=== PATIENT | female | born 1990 | race Caucasian/White ===

== ENCOUNTER 2020-12-30 12:43 | Emergency (ER) | payer OTHER, SELFPAY ==
[2020-12-30 12:51] VITALS: BP 113/60; PULSE 83; RESP 18; TEMP 36.4; O2SAT 96; BMI 55.7
--- NOTE | 2020-12-30 13:22 | ED_ITS ---
HPI - Fall General Chief Complaint: Fall Stated Complaint: FALL Time Seen by Provider: 12/30/20 13:12 History of Present Illness HPI Narrative: Patient complains of continued pain in the left lower leg sales area after a fall 2 weeks ago and is concerned about a small spot on her sales area that is tender to the touch and mildly swollen Related Data Home Medications Medication Instructions Recorded Confirmed docusate sodium 100 mg capsule 100 mg PO BID 08/01/20 08/01/20 ferrous sulfate 325 mg (65 mg 325 mg PO BID 08/01/20 08/01/20 iron) tablet levonorgestrel 20 mcg/24 hours (6 INTRAUTERINE 08/01/20 08/01/20 yrs) 52 mg intrauterine device loratadine 10 mg capsule 10 mg PO DAILY 08/01/20 08/01/20 Allergies Allergy/AdvReac Type Severity Reaction Status Date / Time shellfish Allergy Unknown tongue Verified 12/30/20 12:51 swelling, eyes swelling, swelling SHELLFISH Allergy Unknown ANAPHYLAXIS Uncoded 06/29/20 18:34 Review of Systems Review of Systems: Bump on anterior left lower leg Negatives are no fever no chills no dizziness no weakness no neck pain no chest pain no shortness of breath no posterior leg pain no calf pain no posterior leg swelling no rash no numbness or weakness PMFSH Past Medical History Source: nursing notes reviewed Medical History (Updated 12/31/20 @ 00:01 by Christopher Burks) Anemia So's palsy Hx LEEP (loop electrosurgical excision procedure), cervix, Morbid obesity with BMI of 50.0-59.9, adult Surgical History (Updated 08/01/20 @ 14:06 by Amee Rodriguez MD) H/O cervical biopsy History of section, classical History of laparoscopic cholecystectomy Family History Family History (Updated 08/01/20 @ 14:12 by Amee Rodriguez MD) Father No problems noted. Mother Arthritis Morbid obesity due to excess calories Carly's thyroiditis Sister Asthma Morbid obesity due to excess calories Son Morbid obesity due to excess calories Son No problems noted. Daughter Morbid obesity due to excess calories Brother No problems noted. Brother No problems noted. Sister No problems noted. Paternal Grandmother Brain aneurysm Paternal Grandfather Prostate cancer Maternal Grandfather HTN (hypertension) Social History Social History (Updated 08/01/20 @ 14:13 by Amee Rodriguez MD) Alcohol intake: never Smoking Status: Former smoker Advance Directives: No Advance Directives Information Provided: No Physical Exam Vital Signs: Vital Signs: Last Vital Signs Temp 97.6 F 12/30/20 12:51 Pulse 83 12/30/20 12:51 Resp 18 12/30/20 12:51 BP 113/60 12/30/20 12:51 Pulse Ox 96 12/30/20 12:51 Body Mass Index 55.7 General appearance is no acute distress comfortable relaxed and cooperative Head normocephalic atraumatic Neck is supple Respiratory no distress Extremities full range of motion x4 without any deformity The gait is normal The left lower leg has a tender small hematoma anterior distal portion of the leg, there is no calf tenderness there is no calf swelling there was no posterior leg tenderness or swelling there is full range of motion in all joints and gait is normal, there is no evidence of skin infection skin is normal color without redness or warmth or swelling Neuro no focal weakness, sensation is intact and symmetrical and motor is 5 5 x 4 Course Course Course Narrative: Patient came concerned about a deep vein clot The area of concern is a roughly slightly larger than quarter-sized anterior lower leg spot where she bruised it several weeks ago and continues to have mild pain she has no calf pain no posterior legs pain no leg swelling and a small are a of tenderness is consistent with a contusion, her gait is normal and she is able to stand on 1 leg hop on it and walk with no limp Discharge Plan Discharge Clinical Impression: Contusion of left leg Patient Disposition: Home, Self-Care Additional Instructions: The small contusion on the front of your left lower leg is probably going to resolve in a short amount of time There is no sign of broken bone There is no sign of deep vein clot which does not produce a small area of swelling around the sales but will produce lower leg swelling and pain behind the leg as the most common symptom Prescriptions: No Action Mirena 20 mcg/24 hours (5 yrs) 52 mg intrauterine device intrauterine RF: 0 ferrous sulfate 325 mg (65 mg iron) tablet 325 mg PO BID RF: 0 loratadine 10 mg capsule 10 mg PO DAILY RF: 0 docusate sodium [Colace] 100 mg capsule 100 mg PO BID RF: 0 Interventions: ED Discharge Assessment Last Done: 12/30/20 13:28 Discharge Date/Time: 12/30/20 13:30
== END 2020-12-30 13:30 | disposition home or self-care (01) ==
PROVIDERS: Emergency Provider Emergency Medicine; PCP Internal Medicine
DX: S80.12XA Contusion of left lower leg, initial encounter (principal); W10.8XXA Fall (on) (from) other stairs and steps, initial encounter; M79.662 Pain in left lower leg; Y93.89 Activity, other specified; Y92.018 Other place in single-family (private) house as the place of occurrence of the external cause; Y99.9 Unspecified external cause status
CPT/HCPCS: 99282; 99283

== ENCOUNTER 2021-07-20 11:09 | Outpatient (REF) | payer OTHER, SELFPAY ==
--- NOTE | ~2021-07-20 | XR_ITS ---
EXAMINATION: XR ABDOMEN KUB CLINICAL INDICATION: Slow transit constipation. COMPARISON: None TECHNIQUE: AP view of the abdomen. FINDINGS: The bowel gas pattern is nonspecific without distention. There are postsurgical christi in the right mid quadrant from previous intervention. No gross bony abnormality seen. XR/XR KUB IMPRESSION: Unremarkable KUB.
== END 2021-07-20 11:10 | disposition home or self-care (01) ==
LOC: HO.XRAY 11:09
PROVIDERS: PCP Internal Medicine; Visit Provider Hospitalist
DX: K59.01 Slow transit constipation (principal)
CPT/HCPCS: 74018

== ENCOUNTER 2021-10-11 19:01 | Emergency (ER) | payer OTHER, SELFPAY ==
[2021-10-11 20:02] VITALS: BP 114/73; PULSE 91; RESP 18; TEMP 37.3; O2SAT 100; BMI 55.7
[2021-10-11 20:28] LABS: COVID-19 Test Positive (Negative)
[2021-10-11 21:31] VITALS: BP 116/72; PULSE 88; RESP 20; TEMP 37.3; O2SAT 100
--- NOTE | 2021-10-11 21:47 | ED_ITS ---
HPI - Back Pain/Injury General Chief Complaint: Back Pain/Injury Stated Complaint: lower back pain Time Seen by Provider: 10/11/21 21:46 Source: patient Limitations: no limitations History of Present Illness HPI Narrative: this is a 31-year-old female who complains of lower back pain for a month, this been worse today. The patient notes that she is obese and thinks her back pain is related to this and the fact that she has a job where she sits a lot. The patient had had COVID test as recently as 2 days ago which were negative, due to workplace exposures but not due to any symptoms. The patient today had some aches in her muscles including her lower back and felt slight chills. She denies any rhinorrhea or nasal congestion, sore throat. She has a chronic mild cough due to smoking. She denies any shortness of breath. She denies any abdominal pain, nausea vomiting or diarrhea. She denies any urinary symptoms such as dysuria or urinary frequency. She did receive 1 shot of the Pfizer vaccine and was due to have her 2nd 1 Related Data Home Medications Medication Instructions Recorded Confirmed docusate sodium 100 mg capsule 100 mg PO BID 08/01/20 07/18/21 (Colace) ferrous sulfate 325 mg (65 mg 325 mg PO BID 08/01/20 07/18/21 iron) tablet levonorgestrel 20 mcg/24 hours (7 INTRAUTERINE 08/01/20 07/18/21 yrs) 52 mg intrauterine device (Mirena) loratadine 10 mg capsule 10 mg PO DAILY 08/01/20 07/18/21 trazodone 50 mg tablet 50 mg PO BEDTIME PRN 04/04/21 07/18/21 Previous Rx's Medication Instructions Recorded magnesium citrate (Citrate of 150 ml PO DAILY PRN #296 ml 07/18/21 Magnesia) sennosides 8.6 mg tablet (senna) 8.6 mg PO BID PRN 30 Days #60 tab 07/18/21 ibuprofen 800 mg tablet 800 mg PO Q8H PRN #30 tab 10/11/21 Allergies Allergy/AdvReac Type Severity Reaction Status Date / Time shellfish Allergy Unknown tongue Verified 07/18/21 17:08 swelling, eyes swelling, swelling SHELLFISH Allergy Unknown ANAPHYLAXIS Uncoded 04/04/21 15:07 Review of Systems Constitutional: Constitutional: Reports as per HPI, Reports chills, Denies fever(s) and Reports headache(s) Eyes: Eyes: Reports no additional eye complaints ENT: Reports system reviewed and no additional complaints, except as documented and Reports headache(s) Cardiovascular: Cardiovascular: Reports no additional cardiovascular complaints Respiratory: Respiratory: Reports cough ( chronic, unchanged, related to smoking) Gastrointestinal: Gastrointestinal: Reports as per HPI and Reports no additional gastrointestinal complaints Genitourinary: Genitourinary: Reports no additional female genitourinary complaints and Reports as per HPI Musculoskeletal: Musculoskeletal: Reports back pain and Reports myalgias Neurologic: Reports headache(s) and Denies Sensory deficit (Neuro) [facility] Past Medical History Medical History (Updated 10/11/21 @ 21:53 by Harish Adan MD) Anemia So's palsy Hx LEEP (loop electrosurgical excision procedure), cervix, Morbid obesity with BMI of 50.0-59.9, adult Surgical History (Updated 08/01/20 @ 14:06 by Amee Rodriguez MD) H/O cervical biopsy History of section, classical History of laparoscopic cholecystectomy Family History Family History (Updated 08/01/20 @ 14:12 by Amee Rodriguez MD) Father No problems noted. Mother Arthritis Morbid obesity due to excess calories Carly's thyroiditis Sister Asthma Morbid obesity due to excess calories Son Morbid obesity due to excess calories Son No problems noted. Daughter Morbid obesity due to excess calories Brother No problems noted. Brother No problems noted. Sister No problems noted. Paternal Grandmother Brain aneurysm Paternal Grandfather Prostate cancer Maternal Grandfather HTN (hypertension) Social History Social History (Updated 08/01/20 @ 14:13 by Amee Rodriguez MD) Alcohol intake: never Advance Directives: No Patient : No Physical Exam Vital Signs: Vital Signs: Last Vital Signs Temp 99.1 F 10/11/21 21:31 Pulse 88 10/11/21 21:31 Resp 20 10/11/21 21:31 BP 116/72 10/11/21 21:31 Pulse Ox 100 10/11/21 21:31 BMI result Body Mass Index 55.7 Const: Other: obese General: cooperative, no acute distress and alert Orientation/consciousness: patient oriented x3 HENMT: Head: Yes normal to inspection Eyes: General: appearance normal, both eyes and all related structures Eyelids: Yes eyelids normal Conjunctivae: conjunctivae normal Pupils: Equal, round and reactive pupils present Neck: Neck: Yes normal visual inspection and Yes supple Chest: Chest palpation & inspection: normal inspection of the chest Resp: Effort & Inspection: normal respiratory effort Auscultation: clear to auscultation bilaterally Cardio: Rate: regular rate Rhythm: regular rhythm Heart sounds: S1 normal heart sound present, S2 normal heart sound present, no gallops, no murmurs and no rubs GI: Palpation (GI): Soft to palpation, nontender and Other GI palpation findings present (Non-distended) Auscultation: normal bowel sounds Skin: General skin exam: no rashes or lesions noted Neuro: General: patient oriented x3, no focal motor deficits and CN's II-XI intact bilaterally Cranial nerves: Yes Equal, round and reactive pupils present Cognition (Neuro): normal cognition Motor exam (neuro): 5/5 motor strength present throughout Sensory Exam: No Sensory deficit (Neuro) Extrem: General: Yes normal to inspection and Yes no pedal edema Psych: Appearance: grossly normal Affect: normal affect MDM - Back Pain/Injury MDM Narrative Medical decision making narrative: The patient here for low back pain for a month, which she believes is related to her obesity. Patient without urinary symptoms. Patient did have increased achiness today and is COVID positive. Pulse oximetry is normal. Lungs clear. No respiratory symptoms. Lab Data Labs: Lab Results 10/11/21 Range/Units 20:12 COVID-19 ([facility]) Positive A (Negative) COVID-19 Clin Com See Note Discharge Plan Discharge Clinical Impression: COVID-19 Patient Disposition: Home, Self-Care Instructions: COVID-19 (Coronavirus Disease 2019) (ED) Additional Instructions: drink plenty of fluids. Use acetaminophen or ibuprofen for pain. Quarantine at home for the next 10 days, and until your without a fever for 24 hours. Follow-up with primary care physician. Try to lose weight, as this will help reduce strain on her back as well as other joints such as your hips and knees. Quit smoking. Visit [employer] or call to look into antibody treatment, since her only partially immunized and have a high body mass index Prescriptions: New ibuprofen 800 mg tablet 800 mg PO Q8H PRN (Reason: pain) Qty: 30 RF: 0 No Action trazodone 50 mg tablet 50 mg PO BEDTIME PRNRF: 0 sennosides [senna] 8.6 mg tablet 8.6 mg PO BID PRN (Reason: constipation) 30 Days Qty: 60 RF: 4 magnesium citrate [Citrate of Magnesia] Solution 150 ml PO DAILY PRN (Reason: constipation) Qty: 296 RF: 1 Mirena 20 mcg/24 hours (5 yrs) 52 mg intrauterine device intrauterine RF: 0 ferrous sulfate 325 mg (65 mg iron) tablet 325 mg PO BID RF: 0 loratadine 10 mg capsule 10 mg PO DAILY RF: 0 docusate sodium [Colace] 100 mg capsule 100 mg PO BID RF: 0 Interventions: ED Discharge Assessment Last Done: 10/11/21 23:03 Discharge Date/Time: 10/11/21 23:04
[2021-10-11] MEDS: Ibuprofen 800 MG TABLET PO (22:30)
== END 2021-10-11 23:04 | disposition home or self-care (01) ==
PROVIDERS: Emergency Provider Emergency Medicine; PCP Internal Medicine
DX: U07.1 COVID-19 (principal); M54.50 Low back pain, unspecified; R50.9 Fever, unspecified; F17.210 Nicotine dependence, cigarettes, uncomplicated; Z79.899 Other long term (current) drug therapy; Z71.6 Tobacco abuse counseling
CPT/HCPCS: 36415; 87635; 99283; 99284

== ENCOUNTER 2022-09-10 08:43 | Outpatient (REF) | payer OTHER, SELFPAY ==
[2022-09-10 10:07] LABS: Hemoglobin 11.4 g/dl (12.0-16.0); Mean Corpuscular HGB Conc 31.7 g/dl (31.0-35.0); Mean Corpuscular Hemoglobin 28.8 pg (27.0-33.0); Mean Corpuscular Volume 90.9 fL (80.0-98.0); Mean Platelet Volume 11.9 fL (9.4-12.3); Platelet Count 159 X10*3/uL (160-400); Red Blood Count 3.96 X10*6/uL (4.20-5.50); Red Cell Distribution Width 13.8 % (11.0-16.0); White Blood Count 9.5 X10*3/uL (4.8-10.8)
[2022-09-10 10:08] LABS: Appearance Urine Clear; Color Urine Yellow; Glucose Urine UA Negative (Negative); Leukocyte Esterase Urine Negative (Negative); Nitrite Urine Negative (Negative); Urine Blood Negative (Negative); Urine Ketones Negative (Negative); Urine Protein Negative (Neg-Trace)
[2022-09-10 10:51] LABS: Erythrocyte Sedimentation Rate 64 MM/HR (0-20)
[2022-09-10 11:11] LABS: TSH reflex Free T4 3.04 uIU/mL (0.32-4.0)
[2022-09-10 11:15] LABS: Alanine Aminotransferase 18 U/L (0-31); Albumin Level 3.9 g/dL (3.5-5.0); Alkaline Phosphatase 92 U/L (39-117); Anion Gap 13 (12-20); Aspartate Amino Transferase 13 U/L (5-31); Bilirubin Direct 0.5 mg/dL (0.0-0.5); Bilirubin Total 1.3 mg/dL (0.0-1.0); Blood Urea Nitrogen 6 mg/dL (9-16); Calcium 8.7 mg/dL (8.4-10.2); Carbon Dioxide 25 mmol/L (22-29); Chloride 106 mmol/L (96-108); Estimated Glomerular Filt Rate > 60; Glucose Fasting 97 mg/dL (60-99); Potassium 3.7 mmol/L (3.3-5.1); Rheumatoid Factor < 15.0 IU/mL (<15.0); Sodium 140 mmol/L (135-145); Total Protein 7.3 g/dL (6.5-8.0)
[2022-09-10 17:49] LABS: Iron 28 mcg/dL (30-160); Percent Iron Saturation 11 % (15-50); Total Iron Binding Capacity 264 mcg/dL (228-428); Unsaturated Iron Binding 236 ug/dL
[2022-09-10 18:24] LABS: Folate 11.2 ng/mL (> or = 4.0); Vitamin B12 242 pg/mL (200-900)
[2022-09-12 14:58] LABS: CRP High Sensitivity >10.0 mg/L
[2022-09-15 15:09] LABS: Vitamin D 25-OH, D2 <4 ng/mL; Vitamin D 25-OH, D3 16 ng/mL; Vitamin D 25-OH, Total 16 ng/mL (30-100)
== END 2022-09-10 08:44 | disposition home or self-care (01) ==
LOC: HO.LAB 08:43
PROVIDERS: PCP Hospitalist; Visit Provider Hospitalist
DX: Z00.00 Encounter for general adult medical examination without abnormal findings (principal); M25.50 Pain in unspecified joint; M79.10 Myalgia, unspecified site; D64.9 Anemia, unspecified; Z82.61 Family history of arthritis
CPT/HCPCS: 36415; 80053; 80076; 81003; 82248; 82306; 82607; 82746; 83540; 84443; 85027; 85652; 86141; 86431

== ENCOUNTER 2022-10-03 09:17 | Outpatient (REF) | payer OTHER, SELFPAY ==
[2022-10-03 11:14] LABS: Alanine Aminotransferase 13 U/L (0-31); Albumin Level 4.2 g/dL (3.5-5.0); Alkaline Phosphatase 91 U/L (39-117); Anion Gap 11 (12-20); Aspartate Amino Transferase 9 U/L (5-31); Blood Urea Nitrogen 11 mg/dL (9-16); Calcium 9.1 mg/dL (8.4-10.2); Carbon Dioxide 29 mmol/L (22-29); Chloride 104 mmol/L (96-108); Cholesterol 140 mg/dL; Estimated Glomerular Filt Rate > 60; Glucose Fasting 89 mg/dL (60-99); HDL Cholesterol 32 mg/dL; LDL Cholesterol Calculated 90 mg/dl; Potassium 4.7 mmol/L (3.3-5.1); Sodium 139 mmol/L (135-145); Total Protein 7.7 g/dL (6.5-8.0); Triglycerides 90 mg/dL
== END 2022-10-03 09:18 | disposition home or self-care (01) ==
LOC: HO.LAB 09:17
PROVIDERS: PCP Hospitalist; Visit Provider Hospitalist
DX: Z00.00 Encounter for general adult medical examination without abnormal findings (principal)
CPT/HCPCS: 36415; 80053; 80061

== ENCOUNTER 2023-04-03 10:24 | Emergency (ER) | payer OTHER, SELFPAY ==
[2023-04-03 10:31] VITALS: BP 140/96; PULSE 80; RESP 18; TEMP 36.8; O2SAT 98; BMI 47.5
[2023-04-03 11:07] VITALS: BP 142/94; PULSE 75; PULSE 76; RESP 18; TEMP 37.4; O2SAT 96
[2023-04-03] MEDS: dexAMETHasone sod phosphate 10 MG/ML VIAL IVPUSH (12:04)
--- NOTE | 2023-04-03 12:06 | PC.NURSE ---
strep swab obtained, labs drawn by tech, pt medicated per DEC.
--- NOTE | 2023-04-03 12:10 | PC.NURSE ---
aox4. calm. nausea. x1 episode of vomiting resolved. at this time drinking po fluids, tolerating well. x1 dose steroid given. spo2 WNL. VSS. sore throat continues. no exudate noted to ears/throat. erythema to throat. airway intact. no resp distress. no abdominal pain.
[2023-04-03 12:12] VITALS: O2SAT 97
[2023-04-03 12:29] LABS: Monotest Negative (Negative)
[2023-04-03 12:40] LABS: IDNOW Serial# 9DD0AD1C
[2023-04-03 12:41] LABS: Strep A Nucleic Acid Invalid (Negative)
--- NOTE | 2023-04-03 12:54 | PC.NURSE ---
spoke w lab, invalid error on strep, provider aware.
[2023-04-03 13:39] VITALS: BP 155/92; PULSE 88; RESP 18; TEMP 36.8; O2SAT 99
--- NOTE | 2023-04-03 13:42 | ED_ITS ---
HPI - General Adult General Chief complaint: Upper Respiratory Symptoms Stated complaint: inflammation in throat Time Seen by Provider: 04/03/23 10:51 Source: patient Mode of arrival: ambulatory History of Present Illness HPI narrative: 33-year-old female who was referred in from [facility] for IV medications due to swollen tonsils and states that she had significantly worsening sore throat yesterday and then reports today that she had voice changes denies any fevers but reports chills and denies any ear pain. Patient sources that approximately 1 week ago she had sore throat, took 4 doses of an antibiotic that she had left over, felt better, and then over the past 3 days has felt significantly worse. Related Data Home Medications Medication Instructions Recorded Confirmed docusate sodium 100 mg capsule 100 mg PO BID 08/01/20 09/11/22 (Colace) loratadine 10 mg capsule 10 mg PO DAILY 08/01/20 09/11/22 Previous Rx's Medication Instructions Recorded magnesium citrate (Citrate of 150 ml PO DAILY PRN constipation 07/18/21 Magnesia oral) #296 mL sennosides 8.6 mg tablet (senna) 8.6 mg PO BID PRN constipation 1 07/18/21 month #60 tabs omeprazole 40 mg capsule,delayed 40 mg PO DAILY #30 caps 03/26/22 release hydroxyzine HCl 25 mg tablet 25 mg PO BEDTIME #14 tabs 04/23/22 topiramate 25 mg tablet 25 mg PO DAILY 2 weeks #14 tabs 06/11/22 Feosol 325 mg (65 mg iron) tablet 325 mg PO BID #180 tabs 09/11/22 (ferrous sulfate) cholecalciferol (vitamin D3) 1,250 1,250 mcg PO 2XW 3 months #26 caps 09/16/22 mcg (50,000 unit) capsule ergocalciferol (vitamin D2) 50 mcg 50 mcg PO .COMPLEX 3 months #70 09/16/22 (2,000 unit) capsule caps gabapentin 600 mg tablet 600 mg PO TID 1 month #90 tabs 12/25/22 cyclobenzaprine 10 mg tablet 10 mg PO TID PRN for muscle spasm 01/08/23 #90 tabs meloxicam 15 mg tablet 15 mg PO DAILY #30 tabs 02/27/23 amoxicillin 875 mg-potassium 1 tab PO BID 10 days #20 tabs 04/03/23 clavulanate 125 mg tablet Allergies Allergy/AdvReac Type Severity Reaction Status Date / Time shellfish derived Allergy Unknown Anaphylaxis, Verified 04/03/23 09:54 tongue swelling, swelling Review of Systems Review of Systems: Pertinent positives and negatives as stated in HPI PENDING SALE TO [facility] Past Medical History Source: nursing notes reviewed Medical History Anemia So's palsy Hx LEEP (loop electrosurgical excision procedure), cervix, Morbid obesity with BMI of 50.0-59.9, adult Surgical History H/O cervical biopsy History of section, classical History of laparoscopic cholecystectomy Family History Family History Father No problems noted. Mother Arthritis Morbid obesity due to excess calories Carly's thyroiditis Sister Asthma Morbid obesity due to excess calories Son Morbid obesity due to excess calories Son No problems noted. Daughter Morbid obesity due to excess calories Brother No problems noted. Brother No problems noted. Sister No problems noted. Paternal Grandmother Brain aneurysm Paternal Grandfather Prostate cancer Maternal Grandfather HTN (hypertension) Social History Social History Alcohol intake: never Patient Tobacco Use Status: Current everyday Tobacco user Cigarettes Per Day: 3 Smoked in Last 30 Days: Yes Second Hand Smoke Exposure: No Use of substances other than those prescribed or required for medical reasons: Yes Substance Use Type: Marijuana Substance Use Frequency: Occasionally Last Used Substance: Days (ago) Advance Directives: No Advance Directives Information Provided: No Current occupational exposures/hazards: No Physical Exam ED Vital Signs: Vital Signs - 24 hr 04/03/23 10:31 04/03/23 11:07 04/03/23 12:12 Temperature 98.3 F 99.4 F Pulse Rate 80 76 Respiratory Rate 18 18 Blood Pressure 140/96 H 142/94 H Pulse Oximetry 98 96 97 Oxygen Delivery Method Room Air Room Air Room Air 04/03/23 13:39 04/03/23 14:49 Temperature 98.3 F 99.5 F Pulse Rate 88 86 Respiratory Rate 18 16 Blood Pressure 155/92 H 155/94 H Pulse Oximetry 99 97 Oxygen Delivery Method Room Air Room Air BMI result Body Mass Index 47.5 VITAL SIGNS: Reviewed. GENERAL: Well developed, well nourished, in no acute distress. HEAD: Normocephalic/atraumatic EYES: PERRLA, EOMI EARS: Ext canals without abnormality, TMs non-bulging and non-erythematous NOSE: Nares patent bilateral OROPHARYNX: no oral lesions noted, posterior pharynx clear with erythematous with noted tonsillar enlargement/erythema/exudates, no trismus NECK: Supple, + adenopathy LUNGS: Normal breath sounds. No adventitious sounds or accessory muscle use. SpO2<97> CARDIOVASCULAR: Regular rate and rhythm without noted murmurs, no JVD or lower extremity edema. ABDOMEN: Soft, non-tender, non-distended with bowel sounds. MUSCULOSKELETAL: No tenderness, deformities, or effusions noted on gross inspection. EXTREMITIES: No cyanosis, clubbing or edema. SKIN: Inspection of the skin reveals no rashes NEUROLOGIC: Alert and oriented x 4. Strength and sensation to light touch were grossly intact x 4. So's palsy on the right at baseline Medications Administered Discontinued Medications Generic Name Dose Route Start Last Admin Trade Name Freq PRN Reason Stop Dose Admin Al Hydroxide/Mg Hydroxide 30 ml 04/03/23 13:42 04/03/23 14:04 Magnesium Hydrox/Alum Hydrox 30 Ml Oral.Susp PO 04/03/23 13:43 30 ml ONCE ONE Administration Amoxicillin/Clavulanate Potassium 875 mg 04/03/23 13:42 04/03/23 14:04 Amoxicillin/Potassium Clav 875 Mg Tablet PO 04/03/23 13:43 875 mg ONCE ONE Administration Dexamethasone Sodium Phosphate 10 mg 04/03/23 11:51 04/03/23 12:04 Dexamethasone Sod Phosphate 10 Mg/Ml Vial IVPUSH 04/03/23 11:52 10 mg ONCE ONE Administration Lidocaine HCl 10 ml 04/03/23 13:42 04/03/23 14:04 Lidocaine Hcl Viscous 2 % 15 Ml Solution MUCOUS MEM 04/03/23 13:43 10 ml ONCE ONE Administration Medical Decision Making Medical Decision Making [facility] Narrative: 33-year-old female with history and clinical presentation consistent with significant pharyngitis and tonsillar enlargement, however uvula is midline and tonsils are bilaterally enlarged with obvious exudates, patient will receive antibiotics, steroids and will repeat rapid strep and mono screen. Patient given a GI cocktail for symptom relief of the throat and initial antibiotics. Monospot is negative. Patient is feeling much better in able to tolerate p.o. intake and discharged on 10 days of Augmentin. She was given strict instructions to return within the next 24 hours if she experiences any shortness of breath, inability to tolerate oral secretions, drooling, uncontrolled fevers. Differential Diagnosis Please see the discussion above Lab Data Please see the discussion above Labs: Lab Results 04/03/23 04/03/23 Range/Units 11:53 11:53 Monoscreen Negative (Negative) S. pyogenes GrpA PRISCILA Invalid (Negative) Discharge Plan Discharge Clinical Impression: Strep pharyngitis Patient Disposition: Home, Self-Care Instructions: Strep Throat (ED) Additional Instructions: 1. Recommend [id number] Tylenol/ibuprofen as needed for pain control or fevers greater than 100.4. 2. Please complete the entire course of antibiotics as ordered. 3. Please return to the emergency room if you experience shortness of breath, inability to swallow. Prescriptions: New amoxicillin-pot clavulanate 875-125 mg tablet 1 tab PO BID 10 Days Qty: 20 0RF No Action cholecalciferol (vitamin D3) 1,250 mcg (50,000 unit) capsule 1,250 mcg PO 2XW 90 Days Qty: 26 3RF ergocalciferol (vitamin D2) 50 mcg (2,000 unit) capsule 50 mcg PO .COMPLEX 90 Days Qty: 70 3RF Rx Instructions: 50 mcg orally take 5 days a week when not taking d3; cyclobenzaprine 10 mg tablet 10 mg PO TID PRN (Reason: for muscle spasm) Qty: 90 1RF meloxicam 15 mg tablet 15 mg PO DAILY Qty: 30 1RF hydroxyzine HCl 25 mg tablet 25 mg PO BEDTIME Qty: 14 0RF topiramate 25 mg tablet 25 mg PO DAILY 14 Days Qty: 14 0RF Rx Instructions: QHS ferrous sulfate [Feosol] 325 mg (65 mg iron) tablet 325 mg PO BID Qty: 180 3RF Rx Instructions: pt did not improve anemic status in Ferrous sulfate sennosides [senna] 8.6 mg tablet 8.6 mg PO BID PRN (Reason: constipation) 30 Days Qty: 60 4RF magnesium citrate [Citrate of Magnesia] Solution 150 ml PO DAILY PRN (Reason: constipation) Qty: 296 1RF omeprazole 40 mg capsule,delayed release(DR/EC) 40 mg PO DAILY Qty: 30 0RF gabapentin 600 mg tablet 600 mg PO TID 30 Days Qty: 90 3RF Rx Instructions: take two at bed time and one later in the afternoon loratadine 10 mg capsule 10 mg PO DAILY docusate sodium [Colace] 100 mg capsule 100 mg PO BID Referrals: Adrienne Hardwick, [facility] [Primary Care Provider] -
[2023-04-03] MEDS: Amoxicillin/Potassium Clav 875 MG TABLET PO (14:04)
[2023-04-03] MEDS: Magnesium Hydrox/Alum Hydrox 30 ML ORAL.SUSP PO (14:04)
[2023-04-03] MEDS: Lidocaine HCl Viscous 2 % 15 ML SOLUTION 10 ML MUCOUS MEM (14:04)
--- NOTE | 2023-04-03 14:12 | PC.NURSE ---
pt medicated per MAR.
[2023-04-03 14:49] VITALS: BP 155/94; PULSE 86; RESP 16; TEMP 37.5; O2SAT 97
== END 2023-04-03 15:21 | disposition home or self-care (01) ==
PROVIDERS: Emergency Provider Student in an Organized Health Care Education/Training Program; PCP Hospitalist
DX: J02.0 Streptococcal pharyngitis (principal); F17.210 Nicotine dependence, cigarettes, uncomplicated; F12.90 Cannabis use, unspecified, uncomplicated; E66.01 Morbid (severe) obesity due to excess calories; Z68.42 Body mass index [BMI] 45.0-49.9, adult; Z79.899 Other long term (current) drug therapy
CPT/HCPCS: 36415; 86308; 87651; 99283; 99284; J1100

== ENCOUNTER 2023-05-28 15:18 | Outpatient (AMB) | payer OTHER, SELFPAY ==
[2023-05-28 15:24] VITALS: BP 126/84; PULSE 62; RESP 12; TEMP 36.5; O2SAT 99; BMI 46.4
--- NOTE | 2023-05-28 15:24 | A.OFFPC_ITS ---
Vital Signs 05/28/23 15:24 Height 5 ft 3 in Weight 262 lb BMI 46.4 BP 126/84 Blood Pressure Location Rt brachial Position Sitting Respiration 12 Pulse 62 Pulse Source Pulse Oximeter Temp 97.7 F Temp Source Temporal Artery Scan Pulse Oximetry (%) 99 Oxygen Delivery Method Room Air Intake Visit Reasons: 3 mo fu for weight and headaches Intake Note: Patient states that she thinks her headcahes are due to stress. Patient would like a referral to weight management.Patient is interested in gastric balloon. Patient states that ever since she got her tubual ligation done she has been cold more frequent than she was before. Physical Therapist Clinic Director Required: No Accompanied by: Self / Same As Patient Allergies shellfish derived Allergy (Unknown, Verified 05/28/23 15:38) Anaphylaxis, tongue swelling, swelling Medication List - Last Reconciled 05/28/23 by Dakotah Marquez CNP gabapentin 600 mg PO TID 1 month levonorgestrel (Liletta) intrauterine meloxicam 15 mg PO DAILY Tobacco use date assessed: 12/25/22 Dental Screening Dental Screen Date: 05/28/23 Did you have a dental visit in the last 12 months?: Yes Did you have a dental problem in the last 6 months where you did not have access to dental care?: No Was dental information given to patient?: Patient has dentist HPI HPI Comments History of Present Illness Details 33-year-old female presents for headaches and with management follow- up. She reports significant improvement of her headaches. 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 She intend to lose weight and requests a referral to weight management. She notes she has been doing aerobic exercise and walking x 1 hour twice weekly. She admits to maintaining a healthy diet. She has been gradually losing weight. She reports cold intolerance since she had tubal ligation in February 2023. She has h/o anemia, was on ferrous sulfate until 3-4 months ago, she was evaluated at [facility] ED for c/o vomiting; she notes her iron levels were normal and was advised to discontinued ferrous sulfate. [facility] Medical History (Updated 05/28/23 @ 16:00 by Dakotah Marquez CNP) Anemia So's palsy Hx LEEP (loop electrosurgical excision procedure), cervix, Morbid obesity with BMI of 50.0-59.9, adult Surgical History H/O cervical biopsy History of section, classical History of laparoscopic cholecystectomy Family History Father No problems noted. Mother Arthritis Morbid obesity due to excess calories Carly's thyroiditis Sister Asthma Morbid obesity due to excess calories Son Morbid obesity due to excess calories Son No problems noted. Daughter Morbid obesity due to excess calories Brother No problems noted. Brother No problems noted. Sister No problems noted. Paternal Grandmother Brain aneurysm Paternal Grandfather Prostate cancer Maternal Grandfather HTN (hypertension) Social History Housing: Apartment Alcohol intake: never Patient Tobacco Use Status: Current everyday Tobacco user Cigarettes Per Day: 3 e-Cigarette/Vaping Use: Never Used Second Hand Smoke Exposure: No Substance Use Type: Marijuana service: No Current occupational status: unemployed Current occupational exposures/hazards: No Cognitive needs: No Hearing needs: No Vision needs: Yes Review of Systems Const Details: Const Denies chills, Denies fatigue, Denies fever(s), Denies headache(s) and Denies weakness ENT Denies dizziness and Denies headache(s) Card Denies chest pain, Denies lightheadedness, Denies dyspnea and Denies other (Palpitations) Resp Denies cough, Denies dyspnea, Denies wheezing and Denies other ( shortness of breath) GI Denies abdominal pain, Denies melena, Denies hematochezia, Denies change in bowel habits, Denies dyspepsia and Denies nausea Denies hematuria and Denies dysuria Musc Denies abnormal gait, Denies myalgias, Denies arthralgias, Denies numbness and Denies tingling Skin/Breast Denies rash, Denies unusual bruising and Denies wounds Neuro Denies abnormal gait, Denies dizziness, Denies headache(s), Denies memory loss, Denies numbness, Denies Sensory deficit (Neuro), Denies tingling and Denies weakness Psych Denies anxiety, Denies depression, Denies memory loss Endo Reports cold intolerance, Denies fatigue, Denies heat intolerance, Denies polydipsia and Denies polyuria Aller/Immun Denies wheezing Physical exam (Primary Care) Vital Signs: Last Vital Signs Temp 97.7 F 05/28/23 15:24 Pulse 62 05/28/23 15:24 Resp 12 05/28/23 15:24 BP 126/84 05/28/23 15:24 Pulse Ox 99 05/28/23 15:24 Oxygen Delivery Method Room Air 05/28/23 15:24 BMI result Body Mass Index 46.4 Tobacco/Smoking Status: Tobacco use Status Tobacco use date assessed 12/25/22 04/03/23 09:47 Patient Tobacco Use Status Current everyday Tobacco 04/03/23 09:53 Const Other: General: no acute distress and well developed Nutritional Appearance: well nourished Orientation/consciousness: patient oriented x3 HENMT Head: Yes normocephalic and Yes atraumatic Eyes General: appearance normal, both eyes and all related structures Pupils: Equal, round and reactive pupils present EOM: EOMs intact bilaterally Resp Effort & Inspection: normal respiratory effort Auscultation: clear to auscultation bilaterally Cardio Rate: regular rate Rhythm: regular rhythm Heart sounds: S1 normal heart sound present, S2 normal heart sound present, no gallops, no murmurs and no rubs GI Palpation (GI): No Abdominal aortic bruit present, Soft to palpation, nontender, No hepatosplenomegaly present and No Rebound tenderness present Auscultation: normal bowel sounds General: Yes no CVA tenderness Back/Spine/Pelvis Back: no CVA tenderness Cervical Spine: cervical ROM normal and No Cervical spine tenderness Thoracic/Lumbar Spine: thoraco-lumbar ROM normal, No pain with thoraco-lumbar ROM, No thoracic spinal tenderness and No lumbar spinal tenderness Extrem General: Yes normal to inspection, No edema and No calf tenderness Skin General: warm and dry. Normal skin color. Normal skin turgor Lesions: no lesions Rashes: no rashes Trauma: no lacerations or abrasions Wounds: no wounds Nails: normal Neuro General: patient oriented x3, gait normal and no focal neuro deficit Cranial nerves: Yes Equal, round and reactive pupils present Cognition (Neuro): normal cognition Gait exam (Neuro): Normal gait present Sensory Exam: No Sensory deficit (Neuro) Psych Appearance: grossly normal Affect: normal affect Attitude: cooperative Thought process: Normal thought process present Assessment and Plan Assessment & Plan (1) Migraine headache: Code(s): G43.909 - Migraine, unspecified, not intractable, without status migrainosus Plan: Reports significant improvement of her headaches. She attributes headaches to stress. May take Tylenol Motrin as needed Exercise encouraged to relieve stress Return with worsening or new symptoms Verbalized understanding and agreed with treatment plan. (2) Morbid obesity with BMI of 45.0-49.9, adult: Code(s): E66.01 - Morbid (severe) obesity due to excess calories; Z68.42 - Body mass index [BMI] 45.0-49.9, adult Plan: Current BMI is 46.4 Healthy exercise and routine diet encouraged Referred to with management Advised to schedule a follow-up appointment with her PCP or return with concerns or symptoms Verbalized understanding and agreed with plan. (3) Cold intolerance: Code(s): R68.89 - Other general symptoms and signs Plan: She reports cold intolerance since she had tubal ligation in February 2023 She has history of anemia and was on ferrous sulfate May be related to anemia or hypothyroidism Labs ordered Follow-up with worsening or new symptoms Verbalized understanding and agreed with treatment plan. Orders: Orders Comprehensive [place]. Panel Fast Today R68.89 - Other general symptoms and signs TSH reflex Free T4 Today R68.89 - Other general symptoms and signs Complete Blood Count no Diff Today R68.89 - Other general symptoms and signs Referrals Medical Weight Management Referral E66.01 - Morbid (severe) obesity due to excess calories, Z68.42 - Body mass index [BMI] 45.0-49.9, adult Coding Level of Care Code Est Pt Level 3 (88382) Diagnoses Migraine headache G43.909 Morbid obesity with BMI of 45.0-49.9, adult E66.01; Z68.42 Cold intolerance R68.89
== END 2023-05-28 15:59 | disposition home or self-care (01) ==
PROVIDERS: PCP Hospitalist; Visit Provider Nurse Practitioner Family
DX: G43.909 Migraine, unspecified, not intractable, without status migrainosus (principal); E66.01 Morbid (severe) obesity due to excess calories; Z68.42 Body mass index [BMI] 45.0-49.9, adult; R68.89 Other general symptoms and signs
CPT/HCPCS: 99213

== ENCOUNTER 2023-08-27 11:00 | Outpatient (AMB) | payer OTHER, SELFPAY ==
[2023-08-27 11:07] VITALS: BP 128/76; PULSE 82; BMI 44.2
--- NOTE | 2023-08-27 11:07 | MHC.OFFVIS ---
Intake Vital Signs 08/27/23 11:07 Height 5 ft 3 in Weight 249 lb 5.485 oz BMI 44.2 BP 128/76 Blood Pressure Location Rt brachial Position Sitting Pulse 82 Pulse Source Pulse Oximeter Intake Visit Reasons: Myalgia Intake Note: New pt presents today for consult. C/o joint and muscle pain. 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 1-2 years ago patient started having diffuse pain. She has pain in her chest, neck, shoulders, knees, hands, left knee and ankle. She has generalized morning stiffness lasting 1 hour 45 minutes. She has difficulty getting up from the bed. Patient does not know whether she gets any swollen joints. She does not believe that her rings are more tight. She stated that she fell 5 times and injured her left knee. She does not recall whether an actually injury was sustained. Did not go to the hospital. She states that she feels like she has chills. But her temperature would be normal. She stated that she fell on the stairs a few years ago and hurt her right ankle. She stated that her ankle was in a cast. She was supposed to have the cast for at least 6 weeks. 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 But she removed the cast at 3 weeks. She takes meloxicam 15 mg once or twice a week which helps with her overall stiffness. She denies any skin rashes or fevers. States that her mother has RA. She denies any history of DVT/PE [facility] Medical History (Updated 08/27/23 @ 11:39 by Dakotah Godinez MD) Rheumatoid arthritis Hx LEEP (loop electrosurgical excision procedure), cervix, Anemia Morbid obesity with BMI of 50.0-59.9, adult So's palsy Surgical History H/O tubal ligation H/O cervical biopsy History of section, classical History of laparoscopic cholecystectomy Family History Father No problems noted. Mother Arthritis Morbid obesity due to excess calories Carly's thyroiditis Sister Asthma Morbid obesity due to excess calories Paternal Grandmother Brain aneurysm Paternal Grandfather Prostate cancer Maternal Grandfather HTN (hypertension) Other Family history of fibromyalgia Family history of rheumatoid arthritis Social History Housing: Apartment Alcohol intake: never Patient Tobacco Use Status: Current everyday Tobacco user Cigarettes Per Day: 3 e-Cigarette/Vaping Use: Never Used Second Hand Smoke Exposure: No Substance Use Type: Marijuana service: No Current occupational status: unemployed Current occupational exposures/hazards: No Cognitive needs: No Hearing needs: No Vision needs: Yes Review of Systems Const Reports fatigue, Reports headache(s) and Reports weight loss ENT Reports headache(s) and Reports neck pain Card Reports chest pain GI Reports dyspepsia Musc Reports back pain, Reports myalgias, Reports arthralgias and Reports neck pain Skin/Breast Reports alopecia and Reports unusual bruising Neuro Reports headache(s) Psych Reports anxiety Endo Reports fatigue Physical Exam Vital Signs: Last Vital Signs Pulse 82 08/27/23 11:07 BP 128/76 08/27/23 11:07 BMI result Body Mass Index 44.2 Const General: cooperative, healthy appearing and comfortable Nutritional Appearance: obese morbidly obese Orientation/consciousness: patient oriented x3 Limitations: no limitations HEENT Head: Yes normocephalic and Yes atraumatic Mouth: moist mucous membranes Resp Effort & Inspection: normal respiratory effort and able to speak in complete sentences Auscultation: clear to auscultation bilaterally Cardio Rate: regular rate Rhythm: regular rhythm Skin General skin exam: no rashes or lesions noted Neuro Other: Mild right-sided facial weakness General: patient oriented x3 Extrem Other: Bilateral wrist pain with flexion and extension Bilateral diffusely tender MCPs Bilateral 2nd through 5th PIP tenderness No D IP tenderness bilaterally Normal range of motion of both elbows and shoulders without pain Left knee pain with flexion No ankle swelling or tenderness bilaterally Negative MTP squeeze test Multiple fibromyalgia tender points Normal nailfold capillaroscopy Assessment & Plan Assessment & Plan (1) Arthralgia: Code(s): M25.50 - Pain in unspecified joint Qualifiers: Joint pain location: unspecified Qualified Code(s): M25.50 - Pain in unspecified joint Plan: This is a 33-year-old female who presents for evaluation of diffuse joint pain. Mother has RA. On exam patient has multiple tender joints as well as multiple fibromyalgia tender points. Will order comprehensive serology to screen for underlying autoimmune rheumatic disease. Check x-rays of involved joints. Follow-up in 1 month Plan I spent 46 minutes reviewing patient's chart, evaluating patient, ordering diagnostic workup, counseling patient and documenting in the chart Orders: Orders Complete Blood Count Auto Diff Today M06.9 - Rheumatoid arthritis, unspecified C Reactive Protein Today M06.9 - Rheumatoid arthritis, unspecified YARA Reflex Titer and Pattern Today M06.9 - Rheumatoid arthritis, unspecified Erythrocyte Sedimentation Rate Today M06.9 - Rheumatoid arthritis, unspecified Immunofixation Pnl, Serum Today M06.9 - Rheumatoid arthritis, unspecified Protein Electrophoresis, Serum Today M06.9 - Rheumatoid arthritis, unspecified T Spot TB Today Z11.7 - Encounter for testing for latent tuberculosis infection Rheumatoid Factor Today M06.9 - Rheumatoid arthritis, unspecified Cyclic Citrullinated Peptide Today M06.9 - Rheumatoid arthritis, unspecified XR hand wrist LT Today M06.9 - Rheumatoid arthritis, unspecified XR knee RT 3V Today M06.9 - Rheumatoid arthritis, unspecified XR knee standing BI Today M06.9 - Rheumatoid arthritis, unspecified XR ankle RT min 3V Today M06.9 - Rheumatoid arthritis, unspecified XR foot RT min 3V Today M06.9 - Rheumatoid arthritis, unspecified Comprehensive Met. Panel Today M06.9 - Rheumatoid arthritis, unspecified Hepatitis A,B,C Profile Today Z11.59 - Encounter for screening for other viral diseases XR hand wrist RT Today M06.9 - Rheumatoid arthritis, unspecified XR knee LT 3V Today M06.9 - Rheumatoid arthritis, unspecified XR ankle LT min 3V Today M06.9 - Rheumatoid arthritis, unspecified XR foot LT min 3V Today M06.9 - Rheumatoid arthritis, unspecified Coding Level of Care Code New Pt Level 4 (84839) Diagnoses Arthralgia, unspecified joint M25.50 Joint pain location: unspecified
== END 2023-08-27 11:31 | disposition home or self-care (01) ==
PROVIDERS: PCP Family Medicine; Visit Provider Student in an Organized Health Care Education/Training Program
DX: M25.50 Pain in unspecified joint (principal)
CPT/HCPCS: 99204

== ENCOUNTER → 2023-08-27 11:00 | Outpatient (BNVA) | payer OTHER, SELFPAY | PROVIDERS: PCP Hospitalist; Visit Provider Student in an Organized Health Care Education/Training Program | DX: M25.50 Pain in unspecified joint (principal) | CPT/HCPCS: 99202 ==

== ENCOUNTER 2023-10-30 17:35 | Emergency (ER) | payer OTHER, SELFPAY ==
--- NOTE | 2023-10-30 17:57 | ED.GENADULT ---
HPI - General Adult General Chief complaint: Fever Stated complaint: lymph nodes hurt, sore throat, fever 4 days Time Seen by Provider: 10/31/23 00:31 Source: patient Mode of arrival: ambulatory Limitations: no limitations History of Present Illness HPI narrative: Patient complaining of sore throat with enlarged lymph node bilateral for last 4 days had fever earlier occasional cough does have fever body aches no other family member sick Related Data Home Medications Medication Instructions Recorded Confirmed levonorgestrel 20.4 mcg/24 hrs (8 intrauterine 05/28/23 05/28/23 yrs) 52 mg intrauterine device (Liletta) Previous Rx's Medication Instructions Recorded meloxicam 15 mg tablet 15 mg PO DAILY #30 tabs 06/29/23 gabapentin 600 mg tablet 600 mg PO TID 1 month #90 tabs 08/31/23 amoxicillin 875 mg-potassium 1 tab PO BID #20 tabs 10/31/23 clavulanate 125 mg tablet ibuprofen 600 mg tablet 600 mg PO Q6H PRN fever or pain 10/31/23 #30 tabs Allergies Allergy/AdvReac Type Severity Reaction Status Date / Time shellfish derived Allergy Unknown Anaphylaxis, Verified 08/27/23 11:08 tongue swelling, swelling Review of Systems Review of Systems: Yes all other systems are reviewed and are negative PMFSH Past Medical History Onset Date is defined in the Problem List Problems that require an onset date and time if occurred within 24 hrs of arrival to the ED Aortic Dissection and Rupture; Neurologic impairment; Cardiopulmonary Arrest; Endotracheal Intubation; Insertion or Replacement of Mechanical Circulatory Assist Device Medical History Rheumatoid arthritis Hx LEEP (loop electrosurgical excision procedure), cervix, Anemia Morbid obesity with BMI of 50.0-59.9, adult So's palsy Surgical History H/O tubal ligation H/O cervical biopsy History of section, classical History of laparoscopic cholecystectomy Family History Family History Father No problems noted. Mother Arthritis Morbid obesity due to excess calories Carly's thyroiditis Sister Asthma Morbid obesity due to excess calories Paternal Grandmother Brain aneurysm Paternal Grandfather Prostate cancer Maternal Grandfather HTN (hypertension) Other Family history of fibromyalgia Family history of rheumatoid arthritis Social History Social History Housing: Apartment Unable to assess alcohol history related to: Unknown Alcohol intake: never Patient Tobacco Use Status: Current everyday Tobacco user Cigarettes Per Day: 3 Smoked in Last 30 Days: No e-Cigarette/Vaping Use: Never Used Second Hand Smoke Exposure: No Use of substances other than those prescribed or required for medical reasons: No Substance Use Type: Marijuana Advance Directives: No Advance Directives Information Provided: Yes service: No Current occupational status: unemployed Current occupational exposures/hazards: No Cognitive needs: No Hearing needs: No Vision needs: Yes Physical Exam ED Vital Signs: Vital Signs - 24 hr 10/30/23 17:58 10/30/23 20:21 Temperature 100.4 F 98.9 F Pulse Rate 89 88 Respiratory Rate 16 16 Blood Pressure 124/82 132/79 Pulse Oximetry 100 100 Oxygen Delivery Method Room Air Room Air BMI result Body Mass Index 43.3 Appearance: Alert. Oriented X3. No acute distress. ENT: Enlarged tonsils bilaterally with exudate Oral Mucosa moist Neck: Enlarged bilateral cervical lymph node++ Neck supple. CVS: Normal heart rate and rhythm. Pulses normal. Respiratory: No respiratory distress. Equal air entry bilateral, no wheezing/rales/rhonchi Abdomen: Soft and nontender. Bowel sounds are present, Skin: Skin warm and dry. Normal skin color. Normal skin turgor. Neuro: Oriented X 3. No motor deficit. Course Course Course Narrative: RME- 33-year-old female presents for evaluation of sore throat. She reports cold symptoms for the last 4 days. She reports that her sore throat got significantly worse this morning. She has significant peritonsillar lymphadenopathy bilaterally. Airway is patent with bilateral tonsillar hypertrophy. Plan for labs, viral swab, strep throat swab. Patient has a temp of a 100.4? Medications Administered Discontinued Medications Generic Name Dose Route Start Last Admin Trade Name Freq PRN Reason Stop Dose Admin Amoxicillin/Clavulanate Potassium 875 mg 10/31/23 00:49 10/31/23 00:58 Amoxicillin/Potassium Clav 875 Mg Tablet PO 10/31/23 00:50 875 mg ONCE ONE Administration Ibuprofen 600 mg 10/30/23 18:03 10/30/23 18:05 Ibuprofen 600 Mg Tablet PO 10/30/23 18:04 600 mg ONCE ONE Administration Ibuprofen 600 mg 10/31/23 00:58 10/31/23 00:59 Ibuprofen 600 Mg Tablet PO 10/31/23 00:59 600 mg ONCE ONE Administration Medical Decision Making Medical Decision Making [facility] Narrative: Patient with bilateral tonsillitis no signs of respiratory distress discharge patient antibiotic patient advised to follow with PCP if lymph nodes continue to stay enlarged for further work patient's mono test was negative strep was negative Differential Diagnosis Differential Diagnoses: The differential diagnosis associated with the presentation includes Infectious mononucleosis/strep/pharyngitis/tonsillitis Lab Data [facility] Lab Attestation statement: I reviewed the patient's lab results. 10/30/23 18:21 10/30/23 18:21 Labs: Lab Results 10/30/23 10/30/23 10/30/23 Range/Units 18:15 18:16 18:21 WBC 11.3 H (4.8-10.8) X10*3/uL RBC 4.04 L (4.20-5.50) X10*6/uL Hgb 11.7 L (12.0-16.0) g/dl Hct 35.4 L (37.0-47.0) % MCV 87.6 (80.0-98.0) fL MCH 29.0 (27.0-33.0) pg MCHC 33.1 (31.0-35.0) g/dl RDW 14.3 (11.0-16.0) % Plt Count 117 L D (160-400) X10*3/uL MPV 11.2 (9.4-12.3) fL Immature Gran % (Auto) 1.0 H (0.0-0.4) % Neut % (Auto) 69.1 (45-73) % Lymph % (Auto) 17.9 L (20-40) % Gillespie % (Auto) 10.1 (2-11) % Eos % (Auto) 1.8 (0-4) % Baso % (Auto) 0.1 (0-2) % Lymph # (Auto) 2.0 (1.2-4.9) X10*3/uL Gillespie # (Auto) 1.1 (0.1-1.2) X10*3/uL Eos # (Auto) 0.2 (0.0-0.4) X10*3/uL Baso # (Auto) 0.0 (0.0-0.2) X10*3/uL Abs Immat Gran (auto) 0.11 H (0.00-0.03) X10*3/uL Absolute Neuts (auto) 7.8 (2.0-8.3) x10*3/uL Absolute Nucleated RBC 0.000 (0.0-0.012) X10*3/uL Nucleated RBC % (auto) 0.0 (0.0-0.2) /100WBC Sodium 136 (135-145) mmol/L Potassium 3.7 (3.3-5.1) mmol/L Chloride 102 (96-108) mmol/L Carbon Dioxide 26 (22-29) mmol/L Anion Gap 12 (12-20) BUN 9 (9-16) mg/dL Creatinine 0.65 (0.5-1.4) mg/dL Estim Creat Clear Calc 147.3 Estimated GFR > 60 Random Glucose 94 (60-115) mg/dL Lactic Acid 0.8 (0.5-2.0) mmol/L Calcium 9.0 (8.4-10.2) mg/dL COVID-19 ([facility]THA) Negative (Negative) COVID-19 Clin Com See Note Monoscreen Negative (Negative) Influenza Type A (PRISCILA) Negative (Negative) Influenza Type B (PRISCILA) Negative (Negative) Influenza A & B Note See Note S. pyogenes GrpA PRISCILA Negative (Negative) Discharge Plan Discharge Clinical Impression: Acute bacterial tonsillitis Patient Disposition: Home, Self-Care Instructions: Tonsillitis (ED) Additional Instructions: Take antibiotics as prescribed You have enlarged lymph nodes in the neck which should get better after throat gets better If you continued to have enlarged lymph node you need further evaluation Prescriptions: New amoxicillin-pot clavulanate 875-125 mg tablet 1 tab PO BID Qty: 20 0RF ibuprofen 600 mg tablet 600 mg PO Q6H PRN (Reason: fever or pain) Qty: 30 0RF No Action meloxicam 15 mg tablet 15 mg PO DAILY Qty: 30 1RF gabapentin 600 mg tablet 600 mg PO TID 30 Days Qty: 90 3RF Rx Instructions: take two at bed time and one later in the afternoon Liletta 20.4 mcg/24 hrs (8 yrs) 52 mg intrauterine device intrauterine Interventions: ED Discharge Assessment Last Done: 10/31/23 01:02 Discharge Date/Time: 10/31/23 01:03
[2023-10-30 17:58] VITALS: BP 124/82; PULSE 89; RESP 16; TEMP 38; O2SAT 100; BMI 43.3
[2023-10-30] MEDS: Ibuprofen 600 MG TABLET PO (18:05)
[2023-10-30 18:29] LABS: MANUAL DIFF FLAG NO
[2023-10-30 18:34] LABS: PLT CLUMP 1; SCAN SMEAR FLAG 1
[2023-10-30 18:36] LABS: Basophils Percent Auto 0.1 % (0-2); Eosinophils Absolute Auto 0.2 X10*3/uL (0.0-0.4); Eosinophils Percent Auto 1.8 % (0-4); Hematocrit 35.4 % (37.0-47.0); Hemoglobin 11.7 g/dl (12.0-16.0); Imm Gran Abs Auto 0.11 X10*3/uL (0.00-0.03); Lymphocytes Percent Auto 17.9 % (20-40); Mean Corpuscular HGB Conc 33.1 g/dl (31.0-35.0); Mean Corpuscular Volume 87.6 fL (80.0-98.0); Mean Platelet Volume 11.2 fL (9.4-12.3); Monocytes Absolute Auto 1.1 X10*3/uL (0.1-1.2); Monocytes Percent Auto 10.1 % (2-11); Neutrophils Absolute Auto 7.8 x10*3/uL (2.0-8.3); Neutrophils Percent Auto 69.1 % (45-73); Red Blood Count 4.04 X10*6/uL (4.20-5.50); Red Cell Distribution Width 14.3 % (11.0-16.0)
[2023-10-30 18:39] LABS: Lactic Acid 0.8 mmol/L (0.5-2.0)
[2023-10-30 18:40] LABS: Platelet Count 117 X10*3/uL (160-400); White Blood Count 11.3 X10*3/uL (4.8-10.8)
[2023-10-30 18:42] LABS: Anion Gap 12 (12-20); Blood Urea Nitrogen 9 mg/dL (9-16); Carbon Dioxide 26 mmol/L (22-29); Chloride 102 mmol/L (96-108); Creatinine Clr Calc Pharmacy 147.3; Estimated Glomerular Filt Rate > 60; Glucose Random 94 mg/dL (60-115); Potassium 3.7 mmol/L (3.3-5.1); Sodium 136 mmol/L (135-145)
[2023-10-30 18:43] LABS: Monotest Negative (Negative)
[2023-10-30 18:44] LABS: IDNOW Serial# 08D9AD1C; Strep A Nucleic Acid Negative (Negative)
[2023-10-30 18:44] LABS: COVID-19 Test Negative (Negative); IDNOW Serial# 152EDE1D
[2023-10-30 18:46] LABS: IDNOW Serial# 9DB6401D; Influenza A Negative (Negative); Influenza B2 Negative (Negative)
[2023-10-30 20:21] VITALS: BP 132/79; PULSE 88; RESP 16; TEMP 37.2; O2SAT 100
[2023-10-31] MEDS: Amoxicillin/Potassium Clav 875 MG TABLET PO (00:58)
[2023-10-31] MEDS: Ibuprofen 600 MG TABLET PO (00:59)
[2023-10-31 01:01] VITALS: RESP 16
== END 2023-10-31 01:03 | disposition home or self-care (01) ==
PROVIDERS: Physician Assistant; Emergency Provider Internal Medicine; PCP Nurse Practitioner Family
DX: J03.90 Acute tonsillitis, unspecified (principal); J35.01 Chronic tonsillitis; R50.9 Fever, unspecified; R05.9 Cough, unspecified; R59.9 Enlarged lymph nodes, unspecified; F17.200 Nicotine dependence, unspecified, uncomplicated; Z11.52 Encounter for screening for COVID-19; Z79.899 Other long term (current) drug therapy
CPT/HCPCS: 36415; 80048; 83605; 85025; 86308; 87040; 87502; 87635; 87651; 99283; 99284

== ENCOUNTER 2024-09-06 09:52 | Emergency (ER) | payer OTHER, SELFPAY ==
[2024-09-06 09:56] VITALS: BP 173/92; PULSE 62; RESP 18; TEMP 36.3; O2SAT 98; BMI 47.5
--- NOTE | 2024-09-06 10:13 | ED.GENADULT ---
HPI - General Adult General Chief complaint: Headache Stated complaint: R Side Neck Head Pain No Injury Time Seen by Provider: 09/06/24 10:11 Source: patient and RN notes reviewed Mode of arrival: ambulatory Limitations: no limitations History of Present Illness ED Provider: Alysha Valentine PA-C HPI narrative: This is a 34-year-old female who presents emergency department with complaints of right upper back pain. Patient states that over this last week she has had right-sided neck pain. She states that the pain radiates occasionally up into her face. She states that she has had right-sided headache. She denies any head strike. Denies any severe dizziness, blurred vision, fevers, chills, sore throat, congestion, chest pain, shortness for breath. She is not on anticoagulation. She states that when she pushes on her right side of her upper back, her headache becomes alleviated. She believes that the right side of her back is spasm to which is causing you to have this headache. Denies any nausea or vomiting. She states that the light does not bother her. No other complaints or concerns at this time. MD complaint: Headache, right upper back pain Onset (ago): day(s) Location: neck and back Radiation: non-radiation Severity: moderate Quality: aching Pain Consistency: constant Relieving factors: none Exacerbating factors: none Associated symptoms: denies other symptoms Treatments prior to arrival: none Related Data Home Medications ?Medication ?Instructions ?Recorded ?Confirmed levonorgestrel 20.4 mcg/24 hr (up intrauterine 05/28/23 05/28/23 to 8 yrs) 52 mg intrauterine device (Liletta) Previous Rx's ?Medication ?Instructions ?Recorded meloxicam 15 mg tablet 15 mg PO DAILY #30 tabs 06/29/23 amoxicillin 875 mg-potassium 1 tab PO BID #20 tabs 10/31/23 clavulanate 125 mg tablet ibuprofen 600 mg tablet 600 mg PO Q6H PRN fever or pain 10/31/23 #30 tabs gabapentin 600 mg tablet 600 mg PO TID 1 month #90 tabs 01/02/24 acetaminophen 500 mg tablet 500 mg PO Q6H PRN pain #30 tabs 09/06/24 (Tylenol Extra Strength) ibuprofen 600 mg tablet 600 mg PO Q6H PRN pain #30 tabs 09/06/24 lidocaine 5 % topical patch 1 patch topical DAILY #30 ea 09/06/24 (Lidoderm) methocarbamol 750 mg tablet 750 mg PO TID 3 days #9 tabs 09/06/24 Allergies Allergy/AdvReac Type Severity Reaction Status Date / Time shellfish derived Allergy Unknown Anaphylaxis, Verified 09/06/24 09:58 tongue swelling, swelling Review of Systems Review of Systems: Yes all other systems are reviewed and are negative Constitutional: Constitutional: Reports as per [facility] Past Medical History Attestation statement: The following information was validated with the patient. Medical History Rheumatoid arthritis Hx LEEP (loop electrosurgical excision procedure), cervix, Anemia Morbid obesity with BMI of 50.0-59.9, adult So's palsy Surgical History H/O tubal ligation H/O cervical biopsy History of section, classical History of laparoscopic cholecystectomy Family History Family History Father No problems noted. Mother Arthritis Morbid obesity due to excess calories Carly's thyroiditis Sister Asthma Morbid obesity due to excess calories Paternal Grandmother Brain aneurysm Paternal Grandfather Prostate cancer Maternal Grandfather HTN (hypertension) Other Family history of fibromyalgia Family history of rheumatoid arthritis Social History Social History Housing: Apartment Unable to assess alcohol history related to: Unknown Alcohol intake: never Patient Tobacco Use Status: Current everyday Tobacco user Cigarettes Per Day: 3 e-Cigarette/Vaping Use: Never Used Second Hand Smoke Exposure: No Substance Use Type: Marijuana Advance Directives: No Advance Directives Information Provided: Yes Do you have a plan to hurt others: No Plan service: No Current occupational status: unemployed Current occupational exposures/hazards: No Cognitive needs: No Hearing needs: No Vision needs: Yes Physical Exam ED Vital Signs: Vital Signs - 24 hr 09/06/24 09:56 09/06/24 10:20 Temperature 97.3 F 97.9 F Pulse Rate 62 88 Respiratory Rate 18 18 Blood Pressure 173/92 H 132/92 H Pulse Oximetry 98 98 Oxygen Delivery Method Room Air Room Air BMI result Body Mass Index 47.5 Const General: cooperative, comfortable and no acute distress Orientation/consciousness: patient oriented x3 Limitations: no limitations HENMT Head: Yes normal to inspection, Yes normocephalic and Yes atraumatic Ears: hearing grossly normal bilaterally General nose exam: Normal external nose present Face and sinus: Yes normal facial exam Mouth: Normal oral and palatal mucosa present, oropharynx normal and moist mucous membranes Throat: Yes posterior oropharynx normal Eyes General: appearance normal, both eyes and all related structures Eyelids: Yes eyelids normal Conjunctivae: conjunctivae normal Sclerae: sclerae normal Pupils: Equal, round and reactive pupils present EOM: EOMs intact bilaterally Neck Neck: Yes normal visual inspection, Yes full ROM and Yes no lymphadenopathy Lymphatic: no lymphadenopathy noted Chest Chest palpation & inspection: normal inspection of the chest Resp Effort & Inspection: normal respiratory effort and able to speak in complete sentences Auscultation: clear to auscultation bilaterally, no crackles, no rales, no rhonchi and no wheezes Cardio Rate: regular rate Rhythm: regular rhythm Heart sounds: S1 normal heart sound present and S2 normal heart sound present GI Inspection: Yes normal to inspection Back/Spine/Pelvis Other: No midline C-spine tenderness. She has tenderness palpation with spasm noted over the right trapezius, no overlying skin changes or rashes. Skin General skin exam: no rashes or lesions noted Trauma: no lacerations or abrasions Wounds: no wounds Neuro General: patient oriented x3 and moves all extremities Cranial nerves: Yes CN's II-XII intact bilaterally and Yes Equal, round and reactive pupils present Cognition (Neuro): normal cognition Gait exam (Neuro): Normal gait present Motor exam (neuro): 5/5 motor strength present throughout and Pronator motor function not present Extrem General: Yes normal to inspection Right upper extremity: normal to inspection Left upper extremity: normal to inspection Right lower extremity: normal to inspection Left lower extremity: normal to inspection Medical Decision Making Medical Decision Making MDM Narrative: This is a 34-year-old female who presents emergency department with complaints of right-sided upper back pain, and headache for the last week. She denies any injury or trauma to her neck. No head strike. On initial arrival, blood pressure elevated at 173/92 however patient was wearing a large sweater in triage when this was performed, repeat blood pressure was 132/92. She is alert and oriented x4, under no acute distress. She has tenderness palpation along the right trapezius with spasm noted. She has full range of motion of the neck without difficulty. Symptoms likely tension-like headache with right trapezius muscle spasm. Discussed findings with patient. Patient discharged on ibuprofen, Tylenol, muscle relaxants, Lidoderm patches. Given strict return precautions. Patient stable for discharge. Differential Diagnosis Differential Diagnoses: The differential diagnosis associated with the presentation includes See above Admission/Observation Consideration of admission/observation: Escalation of care including admission/observation considered Lab Data MDM Lab Attestation statement: I reviewed the patient's lab results. Radiology Impression Discussion of test interpretation with radiology: I have reviewed the radiologist's reading. External Record Review External record reviewed: Inpatient record, Office record, Outpatient record, Prior outpatient labs, Prior outpatient radiology, Primary care record and Outside ED record Discharge Plan Discharge Clinical Impression: Spasm of right trapezius muscle, Acute tension headache Patient Disposition: Home, Self-Care Instructions: Tension Headache (ED), Acute Headache (ED) Additional Instructions: You were seen in the emergency department due to right sided upper back pain. You likely have headaches and pain in your right upper back due to a muscle spasm. Please take prescribed medication as directed. Please be advised that muscle relaxants can make you drowsy, do not drink alcohol or drive while taking this medication. Lidoderm patches can also help. Alternate between ibuprofen and Tylenol as needed for pain. If any new or worsening symptoms occur including but not limited to worsening pain, please seek emergent care. Prescriptions: New methocarbamol 750 mg tablet 750 mg PO TID 3 Days Qty: 9 0RF ibuprofen 600 mg tablet 600 mg PO Q6H PRN (Reason: pain) Qty: 30 0RF acetaminophen [Tylenol Extra Strength] 500 mg tablet 500 mg PO Q6H PRN (Reason: pain) Qty: 30 0RF lidocaine [Lidoderm] 5 % adhesive patch,medicated 1 patch topical DAILY Qty: 30 0RF Rx Instructions: leave on most painful area for up to 12 hrs No Action meloxicam 15 mg tablet 15 mg PO DAILY Qty: 30 1RF gabapentin 600 mg tablet 600 mg PO TID 30 Days Qty: 90 3RF Rx Instructions: take two at bed time and one later in the afternoon amoxicillin-pot clavulanate 875-125 mg tablet 1 tab PO BID Qty: 20 0RF ibuprofen 600 mg tablet 600 mg PO Q6H PRN (Reason: fever or pain) Qty: 30 0RF Liletta 20.4 mcg/24 hrs (8 yrs) 52 mg intrauterine device intrauterine Stand Alone Forms: Work/School Release Interventions: ED Discharge Assessment Last Done: 09/06/24 11:32 Print Language: Luxembourgish
[2024-09-06 10:20] VITALS: BP 132/92; PULSE 88; RESP 18; TEMP 36.6; O2SAT 98
[2024-09-06 11:32] VITALS: BP 132/92; PULSE 88; RESP 18; TEMP 36.6; O2SAT 98
== END 2024-09-06 11:34 | disposition home or self-care (01) ==
PROVIDERS: Emergency Provider Emergency Medicine; PCP Nurse Practitioner Family
DX: M62.830 Muscle spasm of back (principal); G44.209 Tension-type headache, unspecified, not intractable; M54.6 Pain in thoracic spine; M54.2 Cervicalgia; M06.9 Rheumatoid arthritis, unspecified; Z79.899 Other long term (current) drug therapy
CPT/HCPCS: 99282; 99283

== ENCOUNTER 2024-09-15 10:20 | Outpatient (AMB) | payer OTHER, SELFPAY ==
--- NOTE | 2024-09-15 10:47 | AM.OFFWIN_ITS ---
Intake Vital Signs 09/15/24 10:53 Height 5 ft 3 in Weight 270 lb BMI 47.8 BP 122/80 Blood Pressure Location Rt brachial Position Sitting Pulse 72 Pulse Source Pulse Oximeter Temp 98.2 F Temp Source Oral Pulse Oximetry (%) 98 Oxygen Delivery Method Room Air Intake Visit Reasons: EP-body ache, sore throat, stuffy nose, ?fever Intake Note: Patient here for body aches, congestion, cough, fevers which started today. Patient Tobacco Use Status: Current everyday Tobacco user Is last menstrual period known: No Allergies shellfish derived Allergy (Unknown, Verified 09/15/24 10:54) Anaphylaxis, tongue swelling, swelling Do you need a note to return to daycare/school/sports/work: Yes HPI EP-body ache, sore throat, stuffy nose, ?fever HPI Details This note is constructed using voice recognition software. While every effort has been made to ensure accuracy, advertising project manager errors may have been included. The patient is a 34 year old female who presents to the clinic today with body aches, sore throat, stuffy nose since yesterday, worsening overnight. She notes that her son tested positive for RSV yesterday, he was sick over the weekend, and went to a walk-in clinic yesterday. She reports that today she is feeling much worse than yesterday, has not taken anything yet but typically takes Mucinex when she has a cough. She also has albuterol inhaler if needed but she has not yet needed that. She denies shortness of breath. [facility] Medical History Rheumatoid arthritis Hx LEEP (loop electrosurgical excision procedure), cervix, Anemia Morbid obesity with BMI of 50.0-59.9, adult So's palsy Surgical History H/O tubal ligation H/O cervical biopsy History of section, classical History of laparoscopic cholecystectomy Family History Father No problems noted. Mother Arthritis Morbid obesity due to excess calories Carly's thyroiditis Sister Asthma Morbid obesity due to excess calories Paternal Grandmother Brain aneurysm Paternal Grandfather Prostate cancer Maternal Grandfather HTN (hypertension) Other Family history of fibromyalgia Family history of rheumatoid arthritis Social History Housing: Apartment Unable to assess alcohol history related to: Unknown Alcohol intake: never Patient Tobacco Use Status: Current everyday Tobacco user Cigarettes Per Day: 3 e-Cigarette/Vaping Use: Never Used Second Hand Smoke Exposure: No Substance Use Type: Marijuana service: No Current occupational status: unemployed Current occupational exposures/hazards: No Cognitive needs: No Hearing needs: No Vision needs: Yes Review of Systems Const All systems reviewed & are unremarkable except as noted in HPI and below Physical Exam Vital Signs: Last Vital Signs Temp 98.2 F 09/15/24 10:53 Pulse 72 09/15/24 10:53 BP 122/80 09/15/24 10:53 Pulse Ox 98 09/15/24 10:53 Oxygen Delivery Method Room Air 09/15/24 10:53 BMI result Body Mass Index 47.8 Const General: cooperative, healthy appearing, comfortable and no acute distress Orientation/consciousness: patient oriented x3 Limitations: no limitations HEENT Head: Yes normal to inspection Ears: hearing grossly normal bilaterally, external ears normal and TM's normal bilaterally General nose exam: Normal external nose present, Normal nares present and No nasal discharge present Face and sinus: Yes normal facial exam and Yes sinuses nontender Mouth: Normal oral and palatal mucosa present and moist mucous membranes Throat: Yes tonsils normal, Yes uvula midline and Yes posterior oropharynx abnormal (Erythema) Eyes General: appearance normal, both eyes and all related structures Neck Neck: Yes normal visual inspection Resp Effort & Inspection: normal respiratory effort, able to speak in complete sentences, Actively coughing, no respiratory distress, not tachypneic, no tripod positioning and no use of accessory muscles Auscultation: clear to auscultation bilaterally Cardio Jugular venous distension: no JVD Rate: regular rate Rhythm: regular rhythm Heart sounds: S1 normal heart sound present, S2 normal heart sound present, no click, no gallops, no murmurs and no rubs Skin General skin exam: no rashes or lesions noted, elasticity normal and turgor normal Neuro General: patient oriented x3 Extrem General: Yes normal to inspection and Yes no clubbing, cyanosis or edema Results AMB Urinalysis, Automated UA Leukoctes 70 Rachele/uL Last Edit by AMELIA Francois on 09/15/24 11:1 3 UA Nitrite Positive Last Edit by Marielos Padilla [facility] on 09/15/24 11:13 UA Urobilinogen 0.2 mg/dL Last Edit by Marielos Padilla [facility] on 09/15/24 11:13 UA Protein 0 mg/dL Last Edit by Marielos Padilla [facility] on 09/15/24 11:13 UA pH 6.5 Last Edit by RhinaSharon Padilla, [facility] on 09/15/24 11:13 UA Blood 80 Panakj/uL Last Edit by RhinaSharon Padilla, [facility] on 09/15/24 11:13 UA Specific Jackson 1.010 Last Edit by Marielos Padilla [facility] on 09/15/24 11:13 UA Ketone Negative Last Edit by RhinaHimanshu Padilla [facility] on 09/15/24 11:13 UA Bilirubin 0 mg/dL Last Edit by Marielos Padilla [facility] on 09/15/24 11:13 UA Glucose 0 mg/dL Last Edit by Marielos Padilla [facility] on 09/15/24 11:13 Results Reviewed Results Reviewed: Laboratory Last Values Urine pH (Auto) 6.5 09/15/24 11:12 Specific Jackson (Auto) 1.010 09/15/24 11:12 Urine Protein (Auto) 0 mg/dL 09/15/24 11:12 Glucose (UA)(Auto) 0 mg/dL 09/15/24 11:12 Urine Ketones (Auto) Negative 09/15/24 11:12 Urine Blood (Auto) 80 Pankaj/uL 09/15/24 11:12 Urine Nitrite (Auto) Positive 09/15/24 11:12 Urine Bilirubin (Auto) 0 mg/dL 09/15/24 11:12 Urine Urobilinogen (Auto) 0.2 mg/dL 09/15/24 11:12 Leukocyte Esterase (Auto) 70 Rachele/uL 09/15/24 11:12 Assessment & Plan Assessment & Plan (1) URI (upper respiratory infection): Code(s): J06.9 - Acute upper respiratory infection, unspecified Qualifiers: URI type: unspecified URI Qualified Code(s): J06.9 - Acute upper respi ratory infection, unspecified Plan: Viral swab obtained to rule out Covid, Influenza, and RSV based on symptoms. Advised mask wearing while symptomatic and quarantine per current CDC guidelines. Reviewed at home support methods including hydration, humidification, vix vapor rub, sinus rinse, and otc treatment options. Discussed treatment with antiviral therapy for covid with paxlovid and with Tamiflu for influenza, including appropriate use and side effects, and need to start medication within 5 day of symptom onset, preferably within 48 hours of symptom onset. Patient wishes to proceed decline antiviral therapy. Given her exposure to her son who was positive for RSV, it is most likely that she is positive for RSV as well. In office rapid strep negative. Advised follow up with worsening symptoms such as dyspnea at rest, which would require emergent evaluation. Orders: Orders SARS-CoV2/FLU/RSV Today J06.9 - Acute upper respiratory infection, unspecified AMB Urinalysis Automated Today Z13.9 - Encounter for screening, unspecified Coding Diagnoses Upper respiratory tract infection, unspecified type J06.9 URI type: unspecified URI
[2024-09-15 10:53] VITALS: BP 122/80; PULSE 72; TEMP 36.8; O2SAT 98; BMI 47.8
== END 2024-09-15 11:16 | disposition home or self-care (01) ==
PROVIDERS: PCP Nurse Practitioner Family; Visit Provider Registered Nurse
DX: Z13.9 Encounter for screening, unspecified (principal)

== ENCOUNTER → 2024-09-15 10:20 | Outpatient (BNVA) | payer OTHER, SELFPAY | PROVIDERS: PCP Nurse Practitioner Family; Visit Provider Registered Nurse | DX: J06.9 Acute upper respiratory infection, unspecified (principal) | CPT/HCPCS: 87880 ==

== ENCOUNTER 2024-09-15 13:18 | Outpatient (REF) | payer OTHER, SELFPAY ==
[2024-09-15 14:13] LABS: Influenza A PCR NEGATIVE (Negative); Influenza B PCR NEGATIVE (Negative); Resp Syncy Virus RNA Qual PCR NEGATIVE (Negative); SARS COV2 PCR INHOUSE NEGATIVE (Negative)
== END 2024-09-15 13:19 | disposition home or self-care (01) ==
LOC: HO.LNP 13:18
PROVIDERS: Visit Provider Registered Nurse
DX: J06.9 Acute upper respiratory infection, unspecified (principal)
CPT/HCPCS: 0241U

== ENCOUNTER 2024-09-17 16:06 | Emergency (ER) | payer OTHER, SELFPAY ==
--- NOTE | 2024-09-17 16:10 | ED_ITS ---
HPI - General Adult General Chief complaint: Upper Respiratory Symptoms Stated complaint: Swollen lymph nodes Time Seen by Provider: 09/17/24 16:26 Source: patient Mode of arrival: ambulatory Limitations: no limitations History of Present Illness ED Provider: PIPPA Rhodes HPI narrative: This is a 34-year-old female hx of obesity history of anemia, obesity, migraines, asthma, hx of bells palsy presenting to the emergency department with a lump behind her right ear. Seen by MARC alarcon for viral illness on Friday had flu, covid, rsv all of which were negative. Reports recently she had a sore throat,cough congestion and viral symptoms which are still present at this time. Denies chest pain, shortness of breath, headache, vision changes, dizziness, weakness, fevers, chills. Related Data Home Medications ?Medication ?Instructions ?Recorded ?Confirmed levonorgestrel 20.4 mcg/24 hr (up intrauterine 05/28/23 05/28/23 to 8 yrs) 52 mg intrauterine device (Liletta) Previous Rx's ?Medication ?Instructions ?Recorded meloxicam 15 mg tablet 15 mg PO DAILY #30 tabs 06/29/23 ibuprofen 600 mg tablet 600 mg PO Q6H PRN fever or pain 10/31/23 #30 tabs gabapentin 600 mg tablet 600 mg PO TID 1 month #90 tabs 01/02/24 acetaminophen 500 mg tablet 500 mg PO Q6H PRN pain #30 tabs 09/06/24 (Tylenol Extra Strength) ibuprofen 600 mg tablet 600 mg PO Q6H PRN pain #30 tabs 09/06/24 lidocaine 5 % topical patch 1 patch topical DAILY #30 ea 09/06/24 (Lidoderm) methocarbamol 750 mg tablet 750 mg PO TID 3 days #9 tabs 09/06/24 acetaminophen 500 mg capsule 500 mg PO Q6H PRN pain #30 caps 09/17/24 prednisone 20 mg tablet 20 mg PO DAILY 5 days #5 tabs 09/17/24 Allergies Allergy/AdvReac Type Severity Reaction Status Date / Time shellfish derived Allergy Unknown Anaphylaxis, Verified 09/17/24 16:19 tongue swelling, swelling Review of Systems Review of Systems: Yes all other systems are reviewed and are negative PMFSH Past Medical History Medical History Rheumatoid arthritis Hx LEEP (loop electrosurgical excision procedure), cervix, Anemia Morbid obesity with BMI of 50.0-59.9, adult So's palsy Surgical History H/O tubal ligation H/O cervical biopsy History of section, classical History of laparoscopic cholecystectomy Family History Family History Father No problems noted. Mother Arthritis Morbid obesity due to excess calories Carly's thyroiditis Sister Asthma Morbid obesity due to excess calories Paternal Grandmother Brain aneurysm Paternal Grandfather Prostate cancer Maternal Grandfather HTN (hypertension) Other Family history of fibromyalgia Family history of rheumatoid arthritis Social History Social History Housing: Apartment Unable to assess alcohol history related to: Unknown Alcohol intake: never Patient Tobacco Use Status: Current everyday Tobacco user Cigarettes Per Day: 3 e-Cigarette/Vaping Use: Never Used Second Hand Smoke Exposure: No Substance Use Type: Marijuana Advance Directives: No Advance Directives Information Provided: No service: No Current occupational status: unemployed Current occupational exposures/hazards: No Cognitive needs: No Hearing needs: No Vision needs: Yes Physical Exam ED Vital Signs: Vital Signs - 24 hr 09/17/24 16:18 Temperature 97.4 F Pulse Rate 71 Respiratory Rate 18 Blood Pressure 155/106 H Pulse Oximetry 100 Oxygen Delivery Method Room Air BMI result Body Mass Index 47.2 vss Appearance: Alert.? Oriented X3.? No acute distress.? Head: Normocephalic, atraumatic, no step-offs or deformities Eyes: Pupils equal, round and reactive to light.? ENT: Pharynx normal.? No erythema, edema, abscess. Uvula midline. Speaking in full sentences controlling secretions well. Neck: Normal inspection.? Neck supple.? Right-sided posterior auricular and posterior cervical adenopathy, small mobile less than 1 cm. CVS: Normal heart rate and rhythm.? Pulses normal.? Respiratory: No respiratory distress.? Breath sounds normal.? Abdomen: Soft and nontender.? Skin: Skin warm and dry.? Normal skin color.? Normal skin turgor.? Extremities: No lower extremity edema.? No calf ttp. 5/5 strength to bilateral upper and lower extremities Neuro: Oriented X 3.? No motor deficit.? No sensory deficit. CN 2-12 intact Course Reevaluation(s) Reevaluation #1: Flu, COVID, RSV and mono pending. Patient will be discharged home will call her if results are positive. This is likely reactive viral lymphadenopathy. Time: 16:27 Medical Decision Making Medical Decision Making [facility] Narrative: 1617 34-year-old female presents with a lump behind right ear status post viral illness ongoing for the past few days. Physical exam Right-sided posterior auricular and posterior cervical adenopathy, small mobile less than 1 cm. Normal pharynx. History and physical exam concerning for viral lymphadenopathy. Less likely malignancy however if it does not improve she should follow up with her PCP for possible biopsy. Unlikely sialadenitis, necrotizing infection, Claudio's. No signs of pharyngitis, peritonsillar abscess, retropharyngeal abscess. Plan discharge patient from triage. Differential Diagnosis Differential Diagnoses: The differential diagnosis associated with the presentation includes (History and physical exam concerning for viral lymphadenopathy. Less likely malignancy however if it does not improve she should follow up with her PCP for possible biopsy. Unlikely sialadenitis, necrotizing infection, Claudio's. No signs of pharyngitis, peritonsillar abscess, retropharyngeal absc) Admission/Observation Consideration of admission/observation: Escalation of care including admission/observation considered Discharge Plan Discharge Clinical Impression: Lymphadenopathy Patient Disposition: Home, Self-Care Instructions: Lymphadenopathy (ED) Additional Instructions: Take your medications as prescribed. If you were prescribed antibiotics today, it is important that you take your medication to their entirety, do not skip any doses, do not finish them early. Follow-up with your primary care provider this week. Return to the emergency department with new or worsening symptoms. Such as fevers, chills, chest pain, shortness of breath, nausea, vomiting, dizziness, headache, vision changes, lethargy In case of emergency call 911 You can apply warm compresses to the affected area. If this does not resolve in a week or 2 please follow-up with your PCP may require biopsy. Take Tylenol as needed. Prescriptions: New acetaminophen 500 mg capsule 500 mg PO Q6H PRN (Reason: pain) Qty: 30 0RF prednisone 20 mg tablet 20 mg PO DAILY 5 Days Qty: 5 0RF No Action meloxicam 15 mg tablet 15 mg PO DAILY Qty: 30 1RF gabapentin 600 mg tablet 600 mg PO TID 30 Days Qty: 90 3RF Rx Instructions: take two at bed time and one later in the afternoon ibuprofen 600 mg tablet 600 mg PO Q6H PRN (Reason: fever or pain) Qty: 30 0RF methocarbamol 750 mg tablet 750 mg PO TID 3 Days Qty: 9 0RF ibuprofen 600 mg tablet 600 mg PO Q6H PRN (Reason: pain) Qty: 30 0RF acetaminophen [Tylenol Extra Strength] 500 mg tablet 500 mg PO Q6H PRN (Reason: pain) Qty: 30 0RF lidocaine [Lidoderm] 5 % adhesive patch,medicated 1 patch topical DAILY Qty: 30 0RF Rx Instructions: leave on most painful area for up to 12 hrs Liletta 20.4 mcg/24 hrs (8 yrs) 52 mg intrauterine device intrauterine Referrals: Physician,Unknown J [Primary Care Provider] - 2 days Print Language: Czech
[2024-09-17 16:18] VITALS: BP 155/106; PULSE 71; RESP 18; TEMP 36.3; O2SAT 100; BMI 47.2
[2024-09-17 16:35] VITALS: BP 155/106; PULSE 71; RESP 18; TEMP 36.3; O2SAT 100
[2024-09-17 16:44] LABS: IDNOW Serial# 08D9AD1C; Strep A Nucleic Acid Negative (Negative)
[2024-09-17 16:52] LABS: Monotest Negative (Negative)
[2024-09-17 17:20] LABS: Influenza A PCR NEGATIVE (Negative); Influenza B PCR NEGATIVE (Negative); Resp Syncy Virus RNA Qual PCR NEGATIVE (Negative); SARS COV2 PCR INHOUSE NEGATIVE (Negative)
== END 2024-09-17 16:35 | disposition home or self-care (01) ==
PROVIDERS: Physician Assistant; Emergency Provider Emergency Medicine
DX: R59.1 Generalized enlarged lymph nodes (principal); H93.8X1 Other specified disorders of right ear; Z03.818 Encounter for observation for suspected exposure to other biological agents ruled out; R05.9 Cough, unspecified; J02.9 Acute pharyngitis, unspecified
CPT/HCPCS: 0241U; 86308; 87651; 99282; 99283

== ENCOUNTER 2024-11-23 15:01 | Outpatient (AMB) | payer OTHER, SELFPAY ==
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
[2024-11-23 15:11] VITALS: BP 146/80; PULSE 61; RESP 16; TEMP 36.6; O2SAT 98; BMI 46.8
[2024-11-23 15:47] VITALS: BP 134/80
== END 2024-11-23 15:59 | disposition home or self-care (01) ==
PROVIDERS: PCP Nurse Practitioner Family; Visit Provider Nurse Practitioner Family
DX: E66.01 Morbid (severe) obesity due to excess calories (principal); Z68.42 Body mass index [BMI] 45.0-49.9, adult; M25.50 Pain in unspecified joint; G89.29 Other chronic pain; Z00.00 Encounter for general adult medical examination without abnormal findings

== ENCOUNTER → 2024-11-23 15:01 | Outpatient (BNVA) | payer OTHER, SELFPAY | PROVIDERS: PCP Nurse Practitioner Family; Visit Provider Nurse Practitioner Family | DX: E66.01 Morbid (severe) obesity due to excess calories (principal); Z68.42 Body mass index [BMI] 45.0-49.9, adult; M25.50 Pain in unspecified joint; G89.29 Other chronic pain; Z71.3 Dietary counseling and surveillance | CPT/HCPCS: 99212 ==

== ENCOUNTER 2024-12-08 13:06 | Outpatient (AMB) | payer OTHER, SELFPAY ==
--- NOTE | 2024-12-08 13:10 | MHC.PC.OV ---
Vital Signs 12/08/24 13:15 Height 5 ft 3 in Weight 279 lb 8 oz BMI 49.5 BP 135/83 Blood Pressure Location Lt brachial Position Sitting Respiration 16 Pulse 51 Pulse Source Pulse Oximeter Temp 98.2 F Temp Source Oral Pulse Oximetry (%) 95 Oxygen Delivery Method Room Air Intake Visit Reasons: Est. 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 Required: No Accompanied by: Mother Is last menstrual period known: Yes Last menstrual period: 11/20/24 Post menopausal: No Patient : No Allergies shellfish derived Allergy (Unknown, Verified 12/08/24 13:29) Anaphylaxis, tongue swelling, swelling Medication List - Last Reconciled 12/08/24 by Dakotah Marquez CNP levonorgestrel (Liletta) intrauterine lidocaine 5% (Lidoderm) 1 patch topical DAILY naproxen 500 mg PO BID PRN Tobacco use date assessed: 12/08/24 Dental Screening Dental Screen Date: 12/08/24 Did you have a dental visit in the last 12 months?: Yes Did you have a dental problem in the last 6 months where you did not have access to dental care?: No Was dental information given to patient?: Patient has dentist HPI HPI Comments History of Present Illness Details 34-year-old female presents to establish care. She did not get lab work done as planned for this visit. Prior PCP? - [place] patino[place] [facility] [place] Last office visit/CPE/labs - 12/25/2022 Acute issue(s) - Multiple joints pain for about a year. Naproxen has not provided relief. She was seen by rheumatology in 08/2023 but did not follow up. - Reports pain to the left heel, with ambulation and touch, for about a year. - Anxiety and depression. Followed by a therapist at [facility] was a week and awaiting to establish with a psychiatrist. She is not interested in psychotropic medications at this time. - History of anemia with history of being on ferrous sulfate. She has not been on ferrous sulfate in a while. - She has difficulty falling or staying asleep; she attributes her poor sleep to generalized joints pain. - Sleep apnea. Past Medical History - Anemia - Multiple joints pain - Morbid obesity - Vitamin D deficiency - Sleep apnea never been on cpap Surgical History - section - Cholecystectomy - Tubal ligation Family History - Mom: Arthritis, Carly thyroiditis, fibromyalgia, morbid obesity, depression, anxiety, PTSD - PGM: Brain aneurysm - PGF: Prostate cancer - MGF: Hypertension Social History - Smokes 2 cigarettes, has been smoking for about 20 years. Vapes nicotine occasionally. Does not drink alcohol. Smokes 3 blunts cannabis daily - She does not make healthy dietary choices. She walks routinely. She has difficulty falling or staying asleep; she attributes her poor sleep to generalized joints pain Health maintenance - Last eye exam was over 7 years ago. Referred to Ophthalmology for routine eye care - Last dental visit was 2-3 months ago - Last tetanus vaccine was in 12/28/2013; received Tdap vaccine today - Has not been vaccinated for the flu this season; declines vaccination - Last pap smear test was in Feb, 2024. She has a pap smear scheduled with [facility] in February 2025 [facility] Medical History Rheumatoid arthritis Hx LEEP (loop electrosurgical excision procedure), cervix, Anemia Morbid obesity with BMI of 50.0-59.9, adult So's palsy Surgical History H/O tubal ligation H/O cervical biopsy History of section, classical History of laparoscopic cholecystectomy Family History (Updated 12/08/24 @ 13:22 by Fadia Tafoya) Father No problems noted. Mother Arthritis Morbid obesity due to excess calories Carly's thyroiditis FH: mental illness Sister Asthma Morbid obesity due to excess calories FH: mental illness Paternal Grandmother Brain aneurysm Paternal Grandfather Prostate cancer Maternal Grandfather HTN (hypertension) Brother FH: mental illness Other Family history of fibromyalgia Family history of rheumatoid arthritis Social History Housing: Apartment Unable to assess alcohol history related to: Unknown Alcohol intake: never Patient Tobacco Use Status: Current everyday Tobacco user Cigarettes Per Day: 3 e-Cigarette/Vaping Use: Never Used Second Hand Smoke Exposure: No Substance Use Type: Marijuana service: No Current occupational status: unemployed Current occupational exposures/hazards: No Cognitive needs: No Hearing needs: No Vision needs: Yes Female Reproductive History Menstrual Date of last menstrual period: 11/20/24 Questionnaire PHQ-9 Over the last 2 weeks, how often have you been bothered by any of the following problems? 1. Little interest or pleasure in doing things: more than half the days 2. Feeling down, depressed, or hopeless: more than half the days 3. Trouble falling or staying asleep, or sleeping too much: nearly every day 4. Feeling tired or having little energy: nearly every day 5. Poor appetite or overeating: several days 6. Feeling bad about yourself - or that you are a failure or have let yourself or your family down: several days 7. Trouble concentrating on things, such as reading the newspaper or watching television: more than half the days 8. Moving or speaking so slowly that other people could have noticed. Or the opposite - being so fidgety or restless that you have been moving around a lot more than usual: more than half the days 9. Thoughts that you would be better off or of hurting yourself in some way: not at all Total score: 16 Depression Screening Interpretation: Positive Depression Screening Follow-up: Existing condition and In treatment Depression Screening Done: Yes 68551 - PHQ-9 Billing: Yes Source: Developed by Drs. Luciano Martinez, Eulalia Block, Freddie Justice and colleagues, with an educational janna from [employer]. Thrive Questionnaire Date Thrive assessed: 12/08/24 I am a: Patient What is your living situation today?: I have a steady place to live Within the past 12 months, did the food you bought not last and you didn't have the money to get more?: Never true Within the past 12 months, did you worry whether your food would run out before you got money to buy more?: Never true Do you have trouble paying for medicines?: No Do you have trouble getting transportation to medical appointments?: Yes Do you have trouble paying your heating and electricity bill?: No Do you have trouble taking care of your child, family member or friend?: No Do you have trouble with day-to-day activities such as bathing, preparing meals, shopping, managing finances, etc.?: No Are you currently unemployed and looking for a job?: Yes Are you interested in more education?: Yes THRIVE Score: 1 AUDIT C Alcohol Use Questionnaire (AUDIT-C) 1. How often do you have a drink containing alcohol?: Never Total Score: 0 RYAN-7 AMB Questionnaire RYAN-7 Date RYAN - 7 assessed: 12/08/24 Feeling nervous, anxious, or on edge: 2 = More than half the days Not being able to stop or control worryin = Several days Worrying too much about different things: 0 = Not at all Trouble relaxin = More than half the days Being so restless that it is hard to sit still: 0 = Not at all Becoming easily annoyed or irritable: 3 = Nearly every day Feeling afraid as if something awful might happen: 0 = Not at all Total RYAN-7 score (0-4 normal; 5-9 mild; 10-14 moderate; 15-21 severe): 8 Source: Developed by Drs. Luciano Martinez, Eulalia Block, Freddie Justice and colleagues, with an educational janna from [employer]. RYAN-7 Assessment Billing RYAN-7 Assessment Tool: RYAN-7 Assessment 62550 ACT Questionnaire In the past 4 weeks, how much of the time did your asthma keep you from getting as much done at work, school or at home?: None of the time During the past 4 weeks, how often have you had shortness of breath?: More than once a day During the past 4 weeks, how often did your asthma symptoms wake you up at night or earlier than usual in the morning?: Once a week During the past 4 weeks, how often have you had to use your rescue inhaler or nebulizer medication?: Not at all How would you rate your asthma control during the past 4 weeks?: Completely controlled ACT Interpretation: Positive Score: 19 Review of Systems Const Details: Denies chills, Denies fatigue, Denies fever(s), Denies headache(s) and Denies weakness HEENT Denies change in vision, Denies dizziness, Denies headache(s), Denies hearing loss, Denies nasal congestion, Denies sinus pain, Denies sinus pressure and Denies sore throat Card Denies chest pain, Denies lightheadedness, Denies dyspnea and Denies other (palpitations) Resp Denies cough, Denies dyspnea and Denies wheezing GI Denies abdominal pain, Denies melena, Denies hematochezia, Denies change in bowel habits, Denies dyspepsia and Denies nausea Denies hematuria and Denies dysuria Musc Reports left heel pain, Reports jonts pain, Denies abnormal gait, Denies myalgias, Denies numbness and Denies tingling Skin/Breast Denies rash, Denies unusual bruising and Denies wounds Neuro Denies abnormal gait, Denies dizziness, Denies headache(s), Denies memory loss, Denies numbness, Denies Sensory deficit (Neuro), Denies tingling and Denies weakness Psych Reports anxiety, Reports depression and Denies memory loss Endo Denies cold intolerance, Denies fatigue, Denies heat intolerance, Denies polydipsia and Denies polyuria Kadeem/Lymph Denies easy bleeding and Denies easy bruising Aller/Immun Denies wheezing Physical exam (Primary Care) Vital Signs: Last Vital Signs Temp 98.2 F 12/08/24 13:15 Pulse 51 12/08/24 13:15 Resp 16 12/08/24 13:15 BP 135/83 12/08/24 13:15 Pulse Ox 95 12/08/24 13:15 Oxygen Delivery Method Room Air 12/08/24 13:15 BMI result Body Mass Index 49.5 Tobacco/Smoking Status: Tobacco use Status Tobacco use date assessed 12/08/24 12/08/24 13:26 Patient Tobacco Use Status Current everyday Tobacco 12/08/24 13:11 e-Cigarette/Vaping Use Never Used 12/08/24 13:11 PHQ-9: PHQ-9 Score PHQ-9: Total score 16 12/08/24 14:10 Depression Screening Interpretation: Positive Depression Screening Follow-up: Existing condition and In treatment Thrive Assessment: Date of Thrive Assessment Date Thrive assessed 12/08/24 12/08/24 13:11 Const Other: General: no acute distress, well developed, alert and awake Nutritional Appearance: well nourished Orientation/consciousness: patient oriented x3 HENMT Head: Yes normocephalic and Yes atraumatic Ears: hearing grossly normal bilaterally and TM's normal bilaterally General nose exam: Normal external nose present and Normal nares present Mouth: Normal oral and palatal mucosa present and moist mucous membranes Teeth and gingiva: dentition normal Throat: Yes oropharynx normal Eyes Pupils: Equal, round and reactive pupils present and Pupil accommodation reflex normal EOM: EOMs intact bilaterally Neck Neck: Yes normal visual inspection, Yes no lymphadenopathy and Yes trachea midline Thyroid: Thyroid normal Carotids: no bruits Lymphatic: no lymphadenopathy noted Chest Chest palpation & inspection: normal inspection of the chest Resp Effort & Inspection: normal respiratory effort Auscultation: clear to auscultation bilaterally Cardio Rate: regular rate Rhythm: regular rhythm Heart sounds: S1 normal heart sound present, S2 normal heart sound present, no gallops, no murmurs and no rubs Bruits: no abdominal aortic bruits and no carotid bruits GI Palpation (GI): No Abdominal aortic bruit present, Soft to palpation, nontender, No hepatosplenomegaly present and No Rebound tenderness present Auscultation: normal bowel sounds General: Yes no CVA tenderness Back/Spine/Pelvis Back: no CVA tenderness Cervical Spine: cervical ROM normal and No Cervical spine tenderness Thoracic/Lumbar Spine: thoraco-lumbar ROM normal, No pain with thoraco-lumbar ROM, No thoracic spinal tenderness and No lumbar spinal tenderness Skin General: warm and dry. Normal skin color. Normal skin turgor Lesions: no lesions Rashes: no rashes Trauma: no lacerations or abrasions Wounds: no wounds Nails: normal Neuro General: patient oriented x3, gait normal and CN's II-XI intact bilaterally Cranial nerves: Yes Equal, round and reactive pupils present Cognition (Neuro): normal cognition Gait exam (Neuro): Normal gait present Motor exam (neuro): 5/5 motor strength present throughout Sensory Exam: No Sensory deficit (Neuro) Deep tendon reflexes (DTR's): Right patellar reflex intensity grade: 2+ and Left patellar reflex intensity grade: 2+ Extrem General: Yes normal to inspection, No edema and No calf tenderness. Left healed tenderness to palpation, no erythema, edema, or overt injury or trauma Psych Appearance: grossly normal Affect: normal affect Attitude: cooperative Thought process: Normal thought process present Immunizations Boostrix Tdap 2.5 Lf unit-8 mcg-5 Lf/0.5 mL intramuscular syringe Performing Provider: Dakotah Marquez CNP [place] [facility] [place] Administered by: Fabian Carrillo RN on 12/08/24 14:19 Dose Route Admin Location Dispensed Lot Number Expiration Date [facility] Website Project Manager 0.5 mL IM Left Deltoid 0.5 mL [id number] 01/29/27 [id number] [employer] VIS Given Date VIS Provided VIS Publication Date 02/26/25 Single Vaccine 21 Eligibility Eligibility Date Funding Source Not [facility] Eligible 12/08/24 Private Coding Level of Care Code New Pt Level 5 (63973) Diagnoses Normal physical examination, routine Z00.00 Iron deficiency anemia D50.9 Thrombocytopenia D69.6 Chronic pain of multiple joints M25.50; G89.29 Morbid obesity with BMI of 45.0-49.9, adult E66.01; Z68.42 Sleep apnea G47.30 Sleep disturbance G47.9 Chronic pain of left heel M79.672; G89.29 Eye exam, routine Z01.00 Anxiety and depression F41.9; F32.A Laboratory tests ordered as part of a complete physical exam (CPE) Z00.00 Additional Codes RYAN-7 Assessment Billing - RYAN-7 Assessment Tool: RYAN-7 Assessment 97979 ([id number]) PHQ-9 - 60690 - PHQ-9 Billing: Yes ([id number]) Asthma Control Questionnaire - ACT Interpretation: Positive ([id number]) Time Spent (min) 60 Comment 60 mins reviewing, speaking and examining pt, coordinating plan of care, and documenting. Assessment & Plan Assessment & Plan (1) Normal physical examination, routine: Code(s): Z00.00 - Encounter for general adult medical examination without abnormal findings Category: Medical Plan: No significant functional limitation or get. Encouraged to perform lab work and follow-up for telehealth visit for labs review in 2-3 weeks. Return sooner with symptoms or concerns. Verbalized understanding and agreed with treatment plan. (2) Iron deficiency anemia: Code(s): D50.9 - Iron deficiency anemia, unspecified Category: Medical Plan: She has not been on ferrous sulfate in a while. Recent RBC and H&H are slightly low, 4.0 and 11.7/35.4 respectively. Will repeat WBC and check iron studies, vitamin B12, and folate levels. Will review results and make changes as needed. Verbalized understanding and agreed with the plan. (3) Thrombocytopenia: Code(s): D69.6 - Thrombocytopenia, unspecified Category: Medical Plan: Recent platelet level is low, 117. Her platelet level was slightly low in 2021, 159. Will recheck platelet count and make changes as needed. (4) Chronic pain of multiple joints: Code(s): M25.50 - Pain in unspecified joint; G89.29 - Other chronic pain Category: Medical Plan: She has been experiencing multiple joints pain for about a year. Naproxen has not provided relief. She was seen by rheumatology in 08/2023 but did not follow up. Encouraged to continue take naproxen as prescribed. Warm/cool compresses encouraged. Weight management encouraged. Referred to rheumatology. Follow-up with worsening or new symptoms. Verbalized understanding and agreed with treatment plan. (5) Morbid obesity with BMI of 45.0-49.9, adult: Code(s): E66.01 - Morbid (severe) obesity due to excess calories; Z68.42 - Body mass index [BMI] 45.0-49.9, adult Category: Medical Plan: She currently weighs 279 lb, BMI is 49.5. Healthy diet and routine exercise encouraged. She was referred to [facility] weight management earlier this month; encouraged to schedule an appointment to establish care when contacted. Verbalized understanding and agreed with treatment plan. (6) Sleep apnea: Code(s): G47.30 - Sleep apnea, unspecified Category: Medical Plan: She has difficulty falling or staying asleep which may be attributed to sleep apnea or chronic generalized joints pain. Anxiety and depression may also be the source of her poor sleep. She has never use a CPAP. [place] [facility] [place]. Continue follow-up with therapist to treat anxiety and depression. Routine exercise encouraged. Follow-up with worsening or new symptoms. Verbalized understanding and agreed with treatment plan. (7) Sleep disturbance: Code(s): G47.9 - Sleep disorder, unspecified Category: Medical Plan: Plan as above. (8) Chronic pain of left heel: Code(s): M79.672 - Pain in left foot; G89.29 - Other chronic pain Category: Medical Plan: Chronic left heel pain with ambulation and touch. Left heel tender to palpation. No erythema, edema, or overt injury or trauma. Likely bone spur. Naproxen as prescribed. X-ray ordered. Will review results and make changes as needed. Verbalized understanding and agreed with treatment plan. (9) Eye exam, routine: Code(s): Z01.00 - Encounter for examination of eyes and vision without abnormal findings Category: Medical Plan: Last eye exam was over 7 years ago. Referred to Ophthalmology for routine eye care. (10) Anxiety and depression: Code(s): F41.9 - Anxiety disorder, unspecified; F32.A - Depression, unspecified Category: Medical Plan: Followed by a therapist at [facility] was a week and awaiting to establish with a psychiatrist. She is not interested in psychotropic medications at this time. PHQ-9 and RYAN-7 scores revealed moderately severe depression and mild anxiety respectively. Routine exercise encouraged. Advised to cut down or avoid smoking cannabis. Follow-up with worsening or new symptoms. Verbalized understanding and agreed with treatment plan. (11) Laboratory tests ordered as part of a complete physical exam (CPE): Code(s): Z00.00 - Encounter for general adult medical examination without abnormal findings Category: Medical Plan: Fasting labs ordered as part of a complete physical exam. Advised to fast for at least 10 hours before getting labs drawn. May drink water Verbalized understanding and agreed with treatment plan. Orders: Orders Microalbumin, Random (w Creat) Today Z00.00 - Encounter for general adult medical examination without abnormal findings Vitamin D 25-OH Total Today Z00.00 - Encounter for general adult medical examination without abnormal findings Ferritin Today D64.9 - Anemia, unspecified TDaP Immunization Today Z23 - Encounter for immunization IRON PROFILE Today D64.9 - Anemia, unspecified Vitamin B12 and Folate Today D64.9 - Anemia, unspecified XR foot LT 2V Today G89.29 - Other chronic pain, M79.672 - Pain in left foot Referrals Ophthalmology Referral Z01.00 - Encounter for examination of eyes and vision without abnormal findings Sleep Medicine Referral G47.30 - Sleep apnea, unspecified
[2024-12-08 13:15] VITALS: BP 135/83; PULSE 51; RESP 16; TEMP 36.8; O2SAT 95; BMI 49.5
--- OUTSIDE RECORDS SUMMARY | 2024-12-08 16:06 | XMS_ITS | Clinical Summary ---
Author Organization [facility] Address [address] [place] [address] Care Team Providers Care Graphite Grinder Name Role Phone Saravanan Cardenas HECTOR Primary Care Provider [phone] Source Comments PLEASE NOTE, if this patient is a minor, it may be UNLAWFUL to discuss sensitive information that is contained in these records (such as FAMILY PLANNING, MENTAL HEALTH or SUBSTANCE ABUSE) with the minor patient's parent or other person without the patient's specific authorization.[facility] Allergies No known active allergies Family History Medical History Relation Name Comments Arthritis Mother RA Thyroid Disease Mother Relation Name Status Comments Brother Alive 2 alive and wel l Father Alive Mother Alive Sister Alive Social History Tobacco Use Types Packs/Day Years Used Date Smoking Tobacco: Former Smokeless Tobacco: Never Comments:quit in 2018 - was smoking > 14 years Alcohol Use Standard Drinks/Week Comments Not Currently 0 (1 standard drink = 0.6 oz pur e alcohol) Social Connections Answer Date Recorded Social Connections and Isolation 0 07/14/2019 Financial Resource Strain Answer Date R ecorded Financial Resource Strain 0 2018 Stress Answer Date Recorded Stress 0 07/14/2019 Physical Activity Answer Date Recorded Physical Activity 0 07/14/2019 Food Insecurity Answer Date Recorded Food 0 07/14/2019 Transportation Needs Answer Date Record ed Transportation 0 07/14/2019 Housing Stability Answer Date Recorded Housing 0 07/14/2019 Safety and Environment Answer Date Riley rded Safety 0 07/14/2019 Utilities Answer Date Recorded Utilities 0 07/14/2019 Employment Answer Date Recorded Employment 0 07/14/2019 Comments No Sex and Gender Information Value Date Recorded Sex Assigned at Female 07/14/2019 8:07 AM PDT Legal Sex Female 8:13 AM PDT Gender Identity Female 07/14/2019 8:07 AM PDT Sexual Orientation Straight 07/14/2019 8: 07 AM PDT Last Filed Vital Signs Vital Sign Reading Time Taken Comments Blood Pressure 104/62 07/14/2019 11:07 AM EDT Pulse 61 07/14/2019 11:07 AM EDT Temperature 36.9 ??C (98.5 ??F) 07/14/2019 11:07 AM E DT Respiratory Rate 16 07/14/2019 11:07 AM EDT Oxygen Saturation - - Inhaled Oxygen Concentration - - Weight 138 kg (304 lb 4.8 oz) 07/14/2019 11:07 A M EDT Height 160.1 cm (5' 3.03 ) 07/14/2019 11:07 AM E DT Body Mass Index 53.85 07/14/2019 11:07 AM EDT Plan of Treatment Not on file Insurance [facility] Care Teams Graphite Grinder Relationship Specialty Start Date End Date Saravanan Cardenas FNP [facility] [place] [id number] PCP - General Family Medicine, ROLLED SEAT TRIMMER 06/03/19
== END 2024-12-08 14:18 | disposition home or self-care (01) ==
PROVIDERS: PCP Nurse Practitioner Family; Visit Provider Nurse Practitioner Family
DX: D50.9 Iron deficiency anemia, unspecified (principal); D69.6 Thrombocytopenia, unspecified; E66.01 Morbid (severe) obesity due to excess calories; Z68.42 Body mass index [BMI] 45.0-49.9, adult; M25.50 Pain in unspecified joint; G89.29 Other chronic pain; G47.30 Sleep apnea, unspecified; G47.9 Sleep disorder, unspecified; M79.672 Pain in left foot; F41.9 Anxiety disorder, unspecified; F32.A Depression, unspecified; Z23 Encounter for immunization

== ENCOUNTER → 2024-12-08 13:06 | Outpatient (BNVA) | payer OTHER, SELFPAY | PROVIDERS: PCP Nurse Practitioner Family; Visit Provider Nurse Practitioner Family | DX: Z00.00 Encounter for general adult medical examination without abnormal findings (principal); Z23 Encounter for immunization; D69.6 Thrombocytopenia, unspecified; D50.9 Iron deficiency anemia, unspecified; M25.50 Pain in unspecified joint; G89.29 Other chronic pain; E66.01 Morbid (severe) obesity due to excess calories; Z68.42 Body mass index [BMI] 45.0-49.9, adult; G47.30 Sleep apnea, unspecified; G47.9 Sleep disorder, unspecified; F41.9 Anxiety disorder, unspecified; F32.A Depression, unspecified | CPT/HCPCS: 90471; 90715; 96127; 96160; 99212 ==

== ENCOUNTER 2024-12-10 08:29 | Outpatient (REF) | payer OTHER, SELFPAY ==
--- NOTE | ~2024-12-10 | XR_ITS ---
EXAMINATION: XR FOOT, LEFT CLINICAL INFORMATION: M79.672 - Pain in left foot COMPARISON: None available. TECHNIQUE: AP, lateral, and oblique views of the left foot. FINDINGS: Calcaneal spur. The metatarsals are intact. The phalanges of the toes are intact. No gross malalignment. No lytic or blastic lesions. No subcutaneous edema. No joint effusion. XR/XR foot LT 2V IMPRESSION: Plantar calcaneal spur. Electronically signed by: Eric Espinal MD 12/10/2024 11:26 AM JACLYN CORONEL
--- OUTSIDE RECORDS SUMMARY | 2024-12-10 08:39 | XMS_ITS | Clinical Summary ---
Author Organization [facility] Address [address] [place] [address] Care Team Providers Care Ground Instructor Advanced Name Role Phone Saravanan Cardenas HECTOR Primary Care Provider [phone] Source Comments PLEASE NOTE, if this patient [...] of Treatment Not on file Insurance [facility] Care Teams Ground Instructor Advanced Relationship Specialty Start Date End Date Saravanan Cardenas FNP [facility] [place] [id number] PCP - General Family Medicine, HAIR SPINNER 06/03/19
[2024-12-10 09:20] LABS: Basophils Absolute Auto 0.1 X10*3/uL (0.0-0.2); Basophils Percent Auto 0.6 % (0-2); Eosinophils Absolute Auto 2.6 X10*3/uL (0.0-0.4); Hematocrit 36.5 % (37.0-47.0); Hemoglobin 11.9 g/dl (12.0-16.0); Imm Gran Abs Auto 0.04 X10*3/uL (0.00-0.03); Imm Gran Pct Auto 0.4 % (0.0-0.4); Lymphocytes Absolute Auto 2.9 X10*3/uL (1.2-4.9); Lymphocytes Percent Auto 28.2 % (20-40); MANUAL DIFF FLAG SCAN; Mean Corpuscular HGB Conc 32.6 g/dl (31.0-35.0); Mean Corpuscular Hemoglobin 30.1 pg (27.0-33.0); Mean Corpuscular Volume 92.2 fL (80.0-98.0); Mean Platelet Volume 10.9 fL (9.4-12.3); Monocytes Absolute Auto 0.7 X10*3/uL (0.1-1.2); Monocytes Percent Auto 7.2 % (2-11); Neutrophils Percent Auto 38.6 % (45-73); Platelet Count 133 X10*3/uL (160-400); Red Blood Count 3.96 X10*6/uL (4.20-5.50); Red Cell Distribution Width 13.6 % (11.0-16.0); SCAN SMEAR FLAG 1; White Blood Count 10.2 X10*3/uL (4.8-10.8)
[2024-12-10 09:43] LABS: SLIDE REVIEW VERIFIED
[2024-12-10 09:55] LABS: Alanine Aminotransferase 14 U/L (0-31); Albumin Level 3.7 g/dL (3.5-5.0); Alkaline Phosphatase 89 U/L (39-117); Anion Gap 9 (12-20); Aspartate Amino Transferase 14 U/L (5-31); Bilirubin Total 0.5 mg/dL (0.0-1.0); Blood Urea Nitrogen 14 mg/dL (9-16); Calcium 8.8 mg/dL (8.4-10.2); Carbon Dioxide 25 mmol/L (22-29); Chloride 110 mmol/L (96-108); Cholesterol 122 mg/dL (<200); Estimated Glomerular Filt Rate > 60; Glucose Fasting 90 mg/dL (60-99); HDL Cholesterol 34 mg/dL (>40); Iron 45 mcg/dL (30-160); LDL Cholesterol Calculated 72 mg/dL (<100); Percent Iron Saturation 17 % (15-50); Potassium 4.6 mmol/L (3.3-5.1); Sodium 139 mmol/L (135-145); Total Iron Binding Capacity 269 mcg/dL (228-428); Total Protein 7.7 g/dL (6.5-8.0); Triglycerides 81 mg/dL (<150); Unsaturated Iron Binding 224 ug/dL
[2024-12-10 10:02] LABS: Ferritin 47 ng/mL (10-122); TSH reflex Free T4 2.93 uIU/mL (0.32-4.0); Vitamin D 25-OH Total 13.2 ng/mL (>30)
[2024-12-10 10:17] LABS: Folate 4.4 ng/mL (> or = 4.0); Vitamin B12 267 pg/mL (200-900)
[2024-12-10 10:43] LABS: Appearance Urine Clear; Color Urine Yellow; Glucose Urine UA Negative (Negative); Leukocyte Esterase Urine Negative (Negative); Nitrite Urine Negative (Negative); PH 5.5 (5.0-9.0); Urine Blood Negative (Negative); Urine Ketones Negative (Negative); Urine Protein Negative (Neg-Trace)
[2024-12-10 11:07] LABS: Creatinine Urine 79.87 mg/dL; Microalbumin Urine < 5.0 mg/L
[2024-12-13 06:38] LABS: CRP High Sensitivity 9.7 mg/L
== END 2024-12-10 08:30 | disposition home or self-care (01) ==
LOC: HO.XRAY 08:29
PROVIDERS: PCP Nurse Practitioner Family; Visit Provider Nurse Practitioner Family
DX: Z00.00 Encounter for general adult medical examination without abnormal findings (principal); M79.672 Pain in left foot; D64.9 Anemia, unspecified; G89.29 Other chronic pain; M25.50 Pain in unspecified joint
CPT/HCPCS: 36415; 73620; 80053; 80061; 81003; 82043; 82306; 82570; 82607; 82728; 82746; 83540; 84443; 85025; 86141

== ENCOUNTER → 2024-12-10 08:54 | Outpatient (BNV) | payer OTHER, SELFPAY | PROVIDERS: PCP Nurse Practitioner Family; Visit Provider Radiology Diagnostic Radiology | DX: M77.32 Calcaneal spur, left foot (principal) | CPT/HCPCS: 73620 ==

== ENCOUNTER 2024-12-23 10:55 | Outpatient (AMB) | payer OTHER, SELFPAY ==
--- NOTE | 2024-12-23 07:58 | A.OFFVIS_ITS ---
Intake Intake Visit Reasons: Telehealth 2-3 wks labs review Allergies shellfish derived Allergy (Unknown, Verified 12/08/24 13:29) Anaphylaxis, tongue swelling, swelling HPI HPI Comments History of Present Illness Details 34-year-old [facility] for review of recent lab results. She has chronic joints pain and chronic pain of the left heel. [facility], [facility] Medical History Rheumatoid arthritis Hx LEEP (loop electrosurgical excision procedure), cervix, Anemia Morbid obesity with BMI of 50.0-59.9, adult So's palsy Surgical History H/O tubal ligation H/O cervical biopsy History of section, classical History of laparoscopic cholecystectomy Family History (Updated 12/08/24 @ 13:22 by Fadia Tafoya MA) Father No problems noted. Mother Arthritis Morbid obesity due to excess calories Carly's thyroiditis FH: mental illness Sister Asthma Morbid obesity due to excess calories FH: mental illness Paternal Grandmother Brain aneurysm Paternal Grandfather Prostate cancer Maternal Grandfather HTN (hypertension) Brother FH: mental illness Other Family history of fibromyalgia Family history of rheumatoid arthritis Social History Housing: Apartment Unable to assess alcohol history related to: Unknown Alcohol intake: never Patient Tobacco Use Status: Current everyday Tobacco user Cigarettes Per Day: 3 e-Cigarette/Vaping Use: Never Used Second Hand Smoke Exposure: No Substance Use Type: Marijuana service: No Current occupational status: unemployed Current occupational exposures/hazards: No Cognitive needs: No Hearing needs: No Vision needs: Yes Review of Systems Const Details: Denies chills, Denies fatigue, Denies fever(s), Denies headache(s) and Denies weakness Cardiac Denies chest pain, Denies claudication, Denies leg edema, Denies lightheadedness, Denies palpitations, Denies dyspnea, Denies dyspnea on exertion, Denies orthopnea and Denies other (Loss of consciousness) Resp Denies cough, Denies excessive phlegm production, Denies dyspnea, Denies dyspnea on exertion, Denies snoring and Denies wheezing Physical Exam Const Other: Alert and oriented x3 Assessment & Plan Assessment & Plan (1) Normocytic anemia: Code(s): D64.9 - Anemia, unspecified Plan: Recent RBC and H&H were slightly low, 3.96 and 11.9/36.5 respectively, MCV is normal. Iron profile, ferritin, vitamin B12, and folate levels are normal. Likely anemia of chronic disease such as chronic joints pain. Referred to Hematology/Oncology for further workup. (2) Thrombocytopenia: Code(s): D69.6 - Thrombocytopenia, unspecified Plan: Recent better level is low, 133. She has had low platelet count dated back to 2021. Referred to hematology/oncology for further workup. (3) Vitamin D deficiency: Code(s): E55.9 - Vitamin D deficiency, unspecified Plan: Recent vitamin-D level is significantly low, 13.2. Vitamin D3 1250 mcg every week was ordered, encouraged to continue to take as prescribed. Performed nonfasting vitamin-D blood work 2-3 days before next visit. Follow-up for a telehealth visit in 6 weeks or return sooner with symptoms or concerns. Verbalized understanding and agreed with treatment plan. (4) Low HDL (under 40): Code(s): E78.6 - Lipoprotein deficiency (5) Bone spur of left foot: Code(s): M77.52 - Other enthesopathy of left foot and ankle (6) Chronic pain of multiple joints: Code(s): M25.50 - Pain in unspecified joint; G89.29 - Other chronic pain Orders: Referrals Rheumatology Referral G89.29 - Other chronic pain, M25.50 - Pain in unspecified joint Coding Diagnoses Normocytic anemia D64.9 Thrombocytopenia D69.6 Vitamin D deficiency E55.9 Low HDL (under 40) E78.6 Bone spur of left foot M77.52 Chronic pain of multiple joints M25.50; G89.29
--- NOTE | 2024-12-23 08:14 | A.OFFPC_ITS ---
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: No Is last menstrual period known: Yes Last menstrual period: 11/16/24 Post menopausal: No Patient : No Allergies shellfish derived Allergy (Unknown, Verified 12/23/24 10:50) Anaphylaxis, tongue swelling, swelling Tobacco use date assessed: 12/23/24 Dental Screening Dental Screen Date: 12/23/24 Did you have a dental visit in the last 12 months?: Yes Did you have a dental problem in the last 6 months where you did not have access to dental care?: No Was dental information given to patient?: Patient has dentist HPI HPI Comments History of Present Illness Details 34-year-old female [facility] for review of recent lab results. She has chronic joints pain and chronic pain of the left heel. [facility] Medical History Rheumatoid arthritis Hx LEEP (loop electrosurgical excision procedure), cervix, Anemia Morbid obesity with BMI of 50.0-59.9, adult So's palsy Surgical History H/O tubal ligation H/O cervical biopsy History of section, classical History of laparoscopic cholecystectomy Family History (Updated 12/08/24 @ 13:22 by Fadia Tafoya MA) Father No problems noted. Mother Arthritis Morbid obesity due to excess calories Carly's thyroiditis FH: mental illness Sister Asthma Morbid obesity due to excess calories FH: mental illness Paternal Grandmother Brain aneurysm Paternal Grandfather Prostate cancer Maternal Grandfather HTN (hypertension) Brother FH: mental illness Other Family history of fibromyalgia Family history of rheumatoid arthritis Social History Housing: Apartment Unable to assess alcohol history related to: Unknown Alcohol intake: never Patient Tobacco Use Status: Current everyday Tobacco user Cigarettes Per Day: 3 e-Cigarette/Vaping Use: Never Used Second Hand Smoke Exposure: No Substance Use Type: Marijuana Patient : No service: No Current occupational status: unemployed Current occupational exposures/hazards: No Cognitive needs: No Hearing needs: No Vision needs: Yes Female Reproductive History Menstrual Date of last menstrual period: 11/16/24 Questionnaire Thrive Questionnaire Date Thrive assessed: 12/08/24 RYAN-7 AMB Questionnaire RYAN-7 Date RYAN - 7 assessed: 12/08/24 Source: Developed by Drs. Luciano Martinez, Eulalia Block, Freddie Justice and colleagues, with an educational janna from [employer]. Review of Systems Const Details: Denies chills, Denies fatigue, Denies fever(s), Denies headache(s) and Denies weakness Cardiac Denies chest pain, Denies claudication, Denies leg edema, Denies lightheadedness, Denies palpitations, Denies dyspnea, Denies dyspnea on exertion, Denies orthopnea and Denies other (Loss of consciousness) Resp Denies cough, Denies excessive phlegm production, Denies dyspnea, Denies dyspnea on exertion, Denies snoring and Denies wheezing Musc Reports as per HPI Physical exam (Primary Care) Tobacco/Smoking Status: Tobacco use Status Tobacco use date assessed 12/23/24 12/23/24 10:52 Patient Tobacco Use Status Current everyday Tobacco 12/23/24 08:17 e-Cigarette/Vaping Use Never Used 12/23/24 08:17 Thrive Assessment: Date of Thrive Assessment Date Thrive assessed 12/08/24 12/23/24 08:17 Const Other: Patient is alert and oriented x3 Telehealth Telehealth Telehealth Platform: Telephone Location of provider rendering services: practice address Location of patient: address on file Patient Identification confirmed using: Name, : Yes Telehealth method: voice only Patient verbally consented to treatment: Yes Patient verbally consented to billing insurance company: Yes Patient informed of any privacy concerns related to visit: Yes Coding Level of Care Code Tele Est Pt Level 3 (53663) Diagnoses Normocytic anemia D64.9 Thrombocytopenia D69.6 Vitamin D deficiency E55.9 Low HDL (under 40) E78.6 Bone spur of left foot M77.52 Chronic pain of multiple joints M25.50; G89.29 Time Spent (min) 20 Assessment & Plan Assessment & Plan (1) Normocytic anemia: Code(s): D64.9 - Anemia, unspecified Category: Medical Plan: Recent RBC and H&H were slightly low, 3.96 and 11.9/36.5 respectively, MCV is normal. Iron profile, ferritin, vitamin B12, and folate levels are normal. Likely anemia of chronic disease such as chronic joints pain. Referred to Hematology/Oncology for further workup. (2) Thrombocytopenia: Code(s): D69.6 - Thrombocytopenia, unspecified Category: Medical Plan: Recent platelet level is low, 133. She has had low platelet count dated back to 2021. Referred to hematology/oncology for further workup. (3) Vitamin D deficiency: Code(s): E55.9 - Vitamin D deficiency, unspecified Category: Medical Plan: Recent vitamin-D level is significantly low, 13.2. Vitamin D3 1250 mcg every week was ordered, encouraged to continue to take as prescribed. Performed nonfasting vitamin-D blood work 2-3 days before next visit. Follow-up for a telehealth visit in 4 weeks or return sooner with symptoms or concerns. Verbalized understanding and agreed with treatment plan. (4) Low HDL (under 40): Code(s): E78.6 - Lipoprotein deficiency Category: Medical Plan: Recent HDL level is slightly low, 34. Advised to limit foods high in saturated fat and avoid foods high in trans fat. Routine exercise encouraged. Will monitor lipid panel levels periodically or with associated symptoms or concerns. Verbalized understanding and agreed with treatment plan. (5) Bone spur of left foot: Code(s): M77.52 - Other enthesopathy of left foot and ankle Category: Medical Plan: Recent x-ray of the left foot revealed plantar calcaneal spur. Continue to take naproxen as prescribed. Apply ice pack as needed. Referred to Ortho. Follow up with worsening or new symptoms. Verbalized understanding and agreed with treatment plan. (6) Chronic pain of multiple joints: Code(s): M25.50 - Pain in unspecified joint; G89.29 - Other chronic pain Category: Medical Plan: Recent CRP is elevated, 9.7. Will check erythrocyte sedimentation rate and rheumatoid factor. Continue take naproxen and use Lidoderm patch as prescribed. Warm/cool compresses encouraged. Referred to rheumatology. Follow-up with worsening or new symptoms. Verbalized understanding and agreed with the treatment plan. Orders: Orders Rheumatoid Factor Today G89.29 - Other chronic pain, M25.50 - Pain in unspecified joint Erythrocyte Sedimentation Rate Today G89.29 - Other chronic pain, M25.50 - Pain in unspecified joint Vitamin D 25-OH Total 1 Month E55.9 - Vitamin D deficiency, unspecified Referrals Rheumatology Referral G89.29 - Other chronic pain, M25.50 - Pain in unspecified joint Hematology & Oncology Referral D64.9 - Anemia, unspecified, D69.6 - Thrombocytopenia, unspecified Orthopedics Referral M77.52 - Other enthesopathy of left foot and ankle
--- OUTSIDE RECORDS SUMMARY | 2024-12-23 13:59 | XMS_ITS | Clinical Summary ---
Author Organization [facility] Address [address] [place] [address] Care Team Providers Care Engineer Design And Construction Name Role Phone Saravanan Cardenas HECTOR Primary Care Provider [phone] Source Comments PLEASE NOTE, if this patient [...] Treatment Not on file Insurance [employer]NE [facility] Care Teams Engineer Design And Construction Relationship Specialty Start Date End Date Saravanan Cardenas FNP [facility] [place] [phone] PCP - General Family Medicine, SALVATIONIST 06/03/19
== END 2024-12-23 11:28 | disposition home or self-care (01) ==
LOC: HO.HMCFM 10:55
PROVIDERS: PCP Nurse Practitioner Family; Visit Provider Nurse Practitioner Family
DX: D64.9 Anemia, unspecified (principal); D69.6 Thrombocytopenia, unspecified; E55.9 Vitamin D deficiency, unspecified; E78.6 Lipoprotein deficiency; M77.52 Other enthesopathy of left foot and ankle; M25.50 Pain in unspecified joint; G89.29 Other chronic pain

== ENCOUNTER 2024-12-29 12:38 | Outpatient (AMB) | payer OTHER, SELFPAY ==
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
[2024-12-29 12:54] VITALS: BP 130/84; PULSE 62; O2SAT 98; BMI 50.1
--- OUTSIDE RECORDS SUMMARY | 2024-12-29 15:01 | XMS_ITS | Clinical Summary ---
Author Organization [facility] Address [address] [place] [address] Care Team Providers Care Tungsten Refiner Name Role Phone Saravanan Cardenas HECTOR Primary Care Provider [phone] Source Comments PLEASE NOTE, if this patient [...] of Treatment Not on file Insurance HNE [facility] Care Teams Tungsten Refiner Relationship Specialty Start Date End Date Saravanan Cardenas FNP [facility] [place] [phone] PCP - General Family Medicine, LOG MANAGER 06/03/19
== END 2024-12-29 13:49 | disposition home or self-care (01) ==
LOC: HO.HSMS 12:39
PROVIDERS: PCP Nurse Practitioner Family; Visit Provider Physician Assistant Medical
DX: D50.8 Other iron deficiency anemias (principal)
CPT/HCPCS: 99204

== ENCOUNTER → 2024-12-29 12:38 | Outpatient (BNVA) | payer OTHER, SELFPAY | PROVIDERS: PCP Nurse Practitioner Family; Visit Provider Physician Assistant Medical | DX: D50.8 Other iron deficiency anemias (principal); G47.19 Other hypersomnia | CPT/HCPCS: 99202 ==

== ENCOUNTER 2025-01-22 09:42 | Outpatient (REF) | payer OTHER, SELFPAY ==
--- OUTSIDE RECORDS SUMMARY | 2025-01-22 09:45 | XMS_ITS | Clinical Summary ---
Author Organization [facility] Address [address] [place] [address] Care Team Providers Care Rn Teacher Name Role Phone Unavailable Primary Care Provider Unavailabl e Social History Tobacco Use Types Packs/Day Years Used Date Smoking Tobacco: Never Assessed Comments Unknown Sex and Gender Information Value Date Recorded Sex Assigned at Not on file Legal Sex Female 9:39 AM EST Gender Identity Not on file Sexual Orientation Not on file Plan of Treatment Upcoming Encounters Date Type Department Care Team (Late st Contact Info) Description 10/17/2025 2:30 PM EST Office Visit Bariatric Surgery - [place] [address] [place] [phone] Kaia Chandler PA [address] [place] [address] Health Maintenance Due Date Last Done Comments DTaP,Tdap,and Td Vaccines (1 - Tdap) 2009 Hepatitis B Vaccines (1 of 3 - 19+ 3-dose series) 2009 Cervical Cancer Screening: P ap Smear 2011 COVID-19 Vaccine ( - 2023-2 5 season) 2024 Depression Screening 01/12/2025 HIV Screening 01/12/2025 Hepatitis C Screening 01/12/2025 Social Influencers of Health Screening 01/12/2025 Influenza Vaccine (Season Ended) 2025 HIB Vaccines Aged Out No longer eligi ble based on patient's age to complete this topic HPV Vaccines Aged Out No longer eligi ble based on patient's age to complete this topic Hepatitis A Vaccines Aged Out No long er eligible based on patient's age to complete this topic IPV Vaccines Aged Out No longer eligi ble based on patient's age to complete this topic MMR Vaccines Aged Out No longer eligi ble based on patient's age to complete this topic Meningococcal ACWY Vaccine Aged Out N o longer eligible based on patient's age to complete this topic Meningococcal B Vaccine Aged Out No l onger eligible based on patient's age to complete this topic Pneumococcal Vaccine: Pediat rics (0 to 5 Years) and At-Risk Patients (6 to 64 Years) Aged Out No longer eligible b ased on patient's age to complete this topic RSV Immunization Patients Un lina 20 months Aged Out No longer eligible b ased on patient's age to complete this topic Varicella Vaccines Aged Out No longer eligible based on patient's age to complete this topic Insurance [facility]
[2025-01-22 11:28] LABS: Vitamin D 25-OH Total 27.4 ng/mL (>30)
[2025-01-22 11:40] LABS: Erythrocyte Sedimentation Rate 40 MM/HR (0-20)
[2025-01-22 12:05] LABS: Rheumatoid Factor < 13.0 IU/mL (<15.0)
== END 2025-01-22 09:43 | disposition home or self-care (01) ==
LOC: HO.LAB 09:42
PROVIDERS: PCP Nurse Practitioner Family; Visit Provider Nurse Practitioner Family
DX: M25.50 Pain in unspecified joint (principal); G89.29 Other chronic pain; E55.9 Vitamin D deficiency, unspecified
CPT/HCPCS: 36415; 82306; 85652; 86431

== ENCOUNTER → 2025-01-25 10:54 | Outpatient (BNV) | payer OTHER, SELFPAY | PROVIDERS: PCP Nurse Practitioner Family; Referring Provider Nurse Practitioner Family; Visit Provider Internal Medicine | DX: D69.6 Thrombocytopenia, unspecified (principal); D64.9 Anemia, unspecified | CPT/HCPCS: 99204 ==

== ENCOUNTER 2025-01-25 13:06 | Outpatient (AMB) | payer OTHER, SELFPAY ==
--- NOTE | 2025-01-25 13:03 | A.OFFPC_ITS ---
Intake Visit Reasons: 1 month Vit D deficiency Intake Note: patient here for 1 month follow up on Vit D deficiency Track Broom Operator Required: No Is last menstrual period known: No (IUD) Post menopausal: No Patient : No Allergies shellfish derived Allergy (Unknown, Verified 01/25/25 13:04) Anaphylaxis, tongue swelling, swelling walnut Allergy (Verified 01/25/25 13:04) Itching Tobacco use date assessed: 01/25/25 Dental Screening Dental Screen Date: 01/25/25 Did you have a dental visit in the last 12 months?: Yes Did you have a dental problem in the last 6 months where you did not have access to dental care?: No Was dental information given to patient?: Patient has dentist HPI HPI Comments History of Present Illness Details 35-year-old female presents for a [facility] visit for vitamin-D deficiency follow-up. She notes that she took vitamin D3 1250 mcg weekly for 4 weeks; her health plan did not approve eight weeks supply. She has not been contacted by Ophthalmology and orthopedics to schedule an appointment. She denies acute symptoms at this time. [facility] Medical History Rheumatoid arthritis Hx LEEP (loop electrosurgical excision procedure), cervix, Anemia Morbid obesity with BMI of 50.0-59.9, adult So's palsy Surgical History H/O tubal ligation H/O cervical biopsy History of section, classical History of laparoscopic cholecystectomy Family History (Updated 01/25/25 @ 11:05 by Beck Payne) Father No problems noted. Mother Arthritis Carly's thyroiditis Morbid obesity due to excess calories FH: mental illness Sister Morbid obesity due to excess calories FH: mental illness Asthma Paternal Grandmother Brain aneurysm Paternal Grandfather Prostate cancer Maternal Grandfather HTN (hypertension) Brother FH: mental illness Maternal Aunt Breast cancer Other Family history of fibromyalgia Family history of rheumatoid arthritis Social History (Updated 01/25/25 @ 11:04 by Beck Payne) Household Members: Children Housing: Apartment Unable to assess alcohol history related to: Unknown Alcohol intake: never Patient Tobacco Use Status: Current everyday Tobacco user Tobacco use type: Cigarette e-Cigarette/Vaping Use: Never Used Second Hand Smoke Exposure: No Substance Use Type: Marijuana Patient : No service: No Current occupational status: unemployed Current occupational exposures/hazards: No Cognitive needs: No Hearing needs: No Vision needs: Yes Questionnaire Thrive Questionnaire Date Thrive assessed: 11/23/24 I am a: Patient What is your living situation today?: I have a steady place to live Within the past 12 months, did the food you bought not last and you didn't have the money to get more?: Never true Within the past 12 months, did you worry whether your food would run out before you got money to buy more?: Never true Do you have trouble paying for medicines?: No Do you have trouble getting transportation to medical appointments?: Yes Do you have trouble paying your heating and electricity bill?: No Do you have trouble taking care of your child, family member or friend?: No Do you have trouble with day-to-day activities such as bathing, preparing meals, shopping, managing finances, etc.?: No Are you currently unemployed and looking for a job?: Yes Are you interested in more education?: Yes THRIVE Score: 1 AUDIT C Alcohol Use Questionnaire (AUDIT-C) 3. How often do you have six or more drinks on one occasion?: Never Total Score: 0 RYAN-7 AMB Questionnaire RYAN-7 Date RYAN - 7 assessed: 12/08/24 Source: Developed by Drs. Luciano Martinez, Eulalia Block, Freddie Justice and colleagues, with an educational janna from [employer]. Review of Systems Const Details: Denies chills, Denies fatigue, Denies fever(s), Denies headache(s) and Denies weakness Cardiac Denies chest pain, Denies claudication, Denies leg edema, Denies lightheadedness, Denies palpitations, Denies dyspnea, Denies dyspnea on exertion, Denies orthopnea and Denies other (Loss of consciousness) Resp Denies cough, Denies excessive phlegm production, Denies dyspnea, Denies dyspnea on exertion, Denies snoring and Denies wheezing Physical exam (Primary Care) Tobacco/Smoking Status: Tobacco use Status Tobacco use date assessed 01/25/25 01/25/25 13:05 Patient Tobacco Use Status Current everyday Tobacco 01/25/25 13:05 Tobacco use type Cigarette 01/25/25 13:05 e-Cigarette/Vaping Use Never Used 01/25/25 13:05 Thrive Assessment: Date of Thrive Assessment Date Thrive assessed 11/23/24 01/25/25 13:05 Const Other: Patient is alert and oriented x3. Telehealth Telehealth Telehealth Platform: Telephone Location of provider rendering services: practice address Location of patient: address on file Patient Identification confirmed using: Name, : Yes Telehealth method: voice only Patient verbally consented to treatment: Yes Patient verbally consented to billing insurance company: Yes Patient informed of any privacy concerns related to visit: Yes Coding Level of Care Code Est Pt Level 3 (57952) Diagnoses Vitamin D deficiency E55.9 Time Spent (min) 10 Assessment & Plan Assessment & Plan (1) Vitamin D deficiency: Code(s): E55.9 - Vitamin D deficiency, unspecified Category: Medical Plan: Recent vitamin-D level is slightly low, 27.4, risk level was 13.2. Vitamin D3 1000 units daily ordered; advised to take as prescribed. Advised to perform blood work 2-3 days before next visit. Follow-up for telehealth visit in 2 months. Return sooner with symptoms or concerns. Verbalized understanding and agreed with the plan. Plan Phone numbers provided for Ophthalmology and Orthopedics. She notes that she will contact them. Orders: Orders Vitamin D 25-OH Total 2 Months E55.9 - Vitamin D deficiency, unspecified Medications: New cholecalciferol (vitamin D3) 25 mcg PO DAILY 30 days 30 tabs 3RF Discontinued cholecalciferol (vitamin D3) Take same-day each week Discontinued Reason: Doctor's Order 1,250 mcg PO QWEEK 8 weeks 8 tabs 0RF
--- OUTSIDE RECORDS SUMMARY | 2025-01-25 16:00 | XMS_ITS | Clinical Summary ---
Author Organization [facility] Address [address] [place] [address] Care Team Providers Care Mitten Stitcher Name Role Phone Saravanan Cardenas HECTOR Primary Care Provider [phone] Source Comments PLEASE NOTE, if this patient [...] of Treatment Not on file Insurance [facility] Care Teams Mitten Stitcher Relationship Specialty Start Date End Date Saravanan Cardenas FNP [facility] [place] [id number] PCP - General Family Medicine, TACTICAL DEBRIEFER OFFICER 06/03/19
--- OUTSIDE RECORDS SUMMARY | 2025-01-25 16:00 | XMS_ITS | Clinical Summary ---
Author Organization [facility] ity Address [address] [place] [address] Care Team Providers Care Chemical Laboratory Scientist Name Role Phone Unavailable Primary Care Provider [...] Contact Info) Description 10/17/2025 2:30 PM EST Consult Bariatric Surgery - [place] [address] [facility] [address] [place] [id number] Kaia Chandler PA [address] [facility] [address] [address] [place] [address] Health Maintenance Due Date Last Done Comments [...] patient's age to complete this topic Insurance [facility]
== END 2025-01-25 13:43 | disposition home or self-care (01) ==
LOC: HO.HMCFM 13:06
PROVIDERS: PCP Nurse Practitioner Family; Visit Provider Nurse Practitioner Family
DX: E55.9 Vitamin D deficiency, unspecified (principal)

== ENCOUNTER → 2025-01-25 13:06 | Outpatient (BNVA) | payer OTHER, SELFPAY | PROVIDERS: PCP Nurse Practitioner Family; Visit Provider Nurse Practitioner Family | DX: E55.9 Vitamin D deficiency, unspecified (principal) | CPT/HCPCS: 99212 ==

== ENCOUNTER 2025-03-26 11:11 | Emergency (ER) | payer OTHER, SELFPAY ==
--- NOTE | ~2025-03-26 | CT_ITS ---
CLINICAL HISTORY: rule out SURGICAL CODER CT soft tissue neck with contrast Comparison: None Findings: The visualized intracranial contents are unremarkable. The bilateral palatine tonsils are enlarged and heterogeneous in appearance. Within the anterior right tonsil there is a low-attenuation collection measuring 6 x 7 mm, series 2, image 48. There are some smaller less well-defined areas of low attenuation within the left palatine tonsil. No definite rim enhancement around any of the collections. There is narrowing of the posterior oropharynx secondary to tonsillar enlargement. The adenoids are enlarged. No prevertebral soft tissue thickening. Salivary glands are unremarkable. No sialoliths. Thyroid gland is unremarkable. There are enlarged bilateral cervical chain lymph nodes, likely reactive. There are some patchy ground-glass opacities noted in the right lung, partially visualized. Left lung apex is clear. No acute fracture or dislocation. IMPRESSION: Enlarged bilateral palatine tonsils with heterogeneous internal architecture suggesting phlegmon or edema. No definite drainable abscess identified, although there may be an early developing abscess in the right tonsil measuring 7 mm. Tonsillar enlargement results in narrowing of the posterior oropharynx. Right lung ground-glass opacity, partially visualized. This could represent areas of infection, inflammation or aspiration This document has been electronically signed by: Jose Teixeira MD on 03/26/2025 14:41:06
--- NOTE | 2025-03-26 11:17 | ED.GENADULT ---
HPI - General Adult General Chief complaint: General Medical Stated complaint: (AGE UNK) L NECK PAIN,PAIN W/SWALLOWING PER EMS Time Seen by Provider: 03/26/25 11:17 Source: patient Mode of arrival: EMS Limitations: no limitations History of Present Illness ED Provider: Jaelyn Saini PA-C HPI narrative: 35-year-old female with medical history of anemia, migraines, asthma, So's palsy presents to the ED due to 2 days of sore throat and difficulty swallowing. Patient states that she was at a concert on Friday night and woke up morning with vocal changes and swelling of her throat. She states the swelling and pain has been worsening over the past 2 days, associated with subjective fever yesterday. Patient reports that she took 5 200 mg ibuprofen yesterday without effect, has also taken 3 doses of leftover amoxicillin that she had at home. Patient states she woke up this morning with worsening vocal changes and decided to seek care. Denies chest pain, shortness of breath, nausea, vomiting, abdominal pain, urinary symptoms, black/tarry stool. Onset (ago): day(s) (2) Location: mouth (Throat) Radiation: non-radiation Severity: moderate Quality: aching Pain Consistency: constant Relieving factors: none Exacerbating factors: other (Swallowing, talking) Associated symptoms: fever/chills Treatments prior to arrival: NSAID (Five 200 mg ibuprofen yesterday) and other (Three doses of amoxicillin) Related Data Home Medications ?Medication ?Instructions ?Recorded ?Confirmed levonorgestrel 20.4 mcg/24 hr (up 20.1 mcg intrauterine DAILY 05/28/23 01/25/25 to 8 yrs) 52 mg intrauterine device (Liletta) Previous Rx's ?Medication ?Instructions ?Recorded lidocaine 5 % topical patch 1 patch topical DAILY #30 ea 09/06/24 (Lidoderm) naproxen 500 mg tablet 500 mg PO BID PRN pain #60 tabs 11/23/24 cholecalciferol (vitamin D3) 25 25 mcg PO DAILY 30 days #30 tabs 01/25/25 mcg (1,000 unit) tablet cyanocobalamin (vitamin B-12) 500 500 mcg PO DAILY #60 tabs 01/25/25 mcg tablet (Vitamin B-12) clindamycin HCl 300 mg capsule 300 mg PO TID 10 days #30 caps 03/26/25 prednisone 20 mg tablet 20 mg PO DAILY 5 days #5 tabs 03/26/25 Allergies Allergy/AdvReac Type Severity Reaction Status Date / Time shellfish derived Allergy Unknown Anaphylaxis, Verified 03/26/25 11:27 tongue swelling, swelling walnut Allergy Itching Verified 03/26/25 11:27 Review of Systems Review of Systems: CONST: Negative body aches and chills. POS fever HENT: Negative for neck pain/stiffness, headache, congestion. POS sore throat, swelling. EYES: Negative for discharge/pain or vision changes. RESP: Negative for cough/hemoptysis and shortness of breath. CV: Negative chest pain, difficulty breathing, palpitations. ABD: Negative pain, nausea, vomiting. : Negative increase frequency, dysuria, blood in urine or stool. MUSC: Negative for muscle aches, edema. SKIN: Negative rash, lesions/sores. NEURO: Negative headache, dizziness, weakness. Yes all other systems are reviewed and are negative PMFSH Past Medical History Attestation statement: The following information was validated with the patient. Source: old records reviewed and nursing notes reviewed Medical History Rheumatoid arthritis Hx LEEP (loop electrosurgical excision procedure), cervix, Anemia Morbid obesity with BMI of 50.0-59.9, adult So's palsy Surgical History H/O tubal ligation H/O cervical biopsy History of section, classical History of laparoscopic cholecystectomy Family History Family History Father No problems noted. Mother Arthritis Carly's thyroiditis Morbid obesity due to excess calories FH: mental illness Sister Morbid obesity due to excess calories FH: mental illness Asthma Paternal Grandmother Brain aneurysm Paternal Grandfather Prostate cancer Maternal Grandfather HTN (hypertension) Brother FH: mental illness Maternal Aunt Breast cancer Other Family history of fibromyalgia Family history of rheumatoid arthritis Social History Social History Household Members: Children Housing: Apartment Unable to assess alcohol history related to: Unknown Alcohol intake: never Patient Tobacco Use Status: Current everyday Tobacco user Tobacco use type: Cigarette e-Cigarette/Vaping Use: Never Used Second Hand Smoke Exposure: No Substance Use Type: Marijuana Advance Directives: No Advance Directives Information Provided: No Do you have a plan to hurt others: No Plan Patient : No service: No Current occupational status: unemployed Current occupational exposures/hazards: No Cognitive needs: No Hearing needs: No Vision needs: Yes Physical Exam ED Vital Signs: Vital Signs - 24 hr 03/26/25 11:25 03/26/25 12:08 03/26/25 16:04 Temperature 97.9 F 0 F L Pulse Rate 71 82 82 Respiratory Rate 20 18 18 Blood Pressure 145/98 H 133/85 133/85 Pulse Oximetry 97 99 99 Oxygen Delivery Method Room Air Room Air Room Air BMI result Body Mass Index 36.0 GENERAL APPEARANCE: ?AxOx4, tired appearing, no acute distress. HEENT: ?NC, AT. MMM. EOMI, clear conjunctiva, oropharynx with mild edema, erythema, B/L white tonsilar exudates with edema NECK: Mild lymphadenopathy.? No stiffness or restricted ROM. HEART:? Normal rate and regular rhythm, normal S1/S1, no m/r/g LUNGS:? CTAB, moving air well. No crackles or wheezes are heard. ABDOMEN: ?Soft, nontender, nondistended with good bowel sounds heard. BACK: No CVAT, no obvious deformity. EXTREMITIES: ?Without cyanosis, clubbing or edema. NEUROLOGICAL: ?Grossly nonfocal. Alert and oriented, moving all 4 extremities. Observed to ambulate with normal gait. Skin: ?Warm and dry without any rash. Medications Administered Discontinued Medications Generic Name Dose Route Start Last Admin Trade Name Freq PRN Reason Stop Dose Admin Dexamethasone Sodium Phosphate 10 mg 03/26/25 11:27 03/26/25 12:10 Dexamethasone Sod Phosphate 10 Mg/Ml Vial IVPUSH 03/26/25 11:28 10 mg ONCE ONE Administration Clindamycin Phosphate 600 mg in 50 mls @ 100 mls/hr 03/26/25 11:27 03/26/25 12:45 Cleocin IV 03/26/25 11:56 Infused ONCE ONE Infusion Iohexol 60 ml 03/26/25 13:27 03/26/25 13:28 Iohexol 350 Mg/Ml 100 Ml Infus..Btl IV 03/26/25 13:28 60 ml ONCE ONE Administration Ketorolac Tromethamine 15 mg 03/26/25 11:27 03/26/25 12:10 Ketorolac Tromethamine 15 Mg/Ml Vial IVPUSH 03/26/25 11:28 15 mg ONCE ONE Administration Lorazepam 2 mg 03/26/25 11:52 03/26/25 12:10 Lorazepam 1 Mg Tablet PO 03/26/25 11:53 2 mg ONCE ONE Administration Medical Decision Making Medical Decision Making MDM Narrative: 35-year-old female with medical history of anemia, migraines, asthma, So's palsy presents to the ED due to 2 days of sore throat and difficulty swallowing. Patient states that she was at a concert on Friday night and woke up morning with vocal changes and swelling of her throat. She states the swelling and pain has been worsening over the past 2 days, associated with subjective fever yesterday. Patient reports that she took 5 200 mg ibuprofen yesterday without effect, has also taken 3 doses of leftover amoxicillin that she had at home. VSS, no acute distress, nontoxic appearing. On physical exam there is mild anterior cervical lymphadenopathy, mild submandibular swelling, no submental swelling. Posterior oropharynx with mild edema and erythema, B/L white tonsillar exudates with moderate edema. No sublingual swelling. Uvula midline without edema. Airway protected, tolerating oral secretions. Voice is slightly muffled. Will obtain labs, Monospot, viral swabs, strep swab. We will medicate with 10 mg IV Decadron for swelling, IV 15 mg Toradol for swelling and pain, 600 mg clindamycin. Will obtain soft tissue neck CT with contrast to evaluate extent of infection. Does not meet sepsis criteria at this time. Course 12:47- rapid strep positive for strep infection. Labs with leukocytosis at 21.8. Awaiting CT soft tissue neck for further evaluation. 14:08- Monospot negative. Awaiting CT results. 15:20- CT results reveal a possible phlegmon or edema with early developing abscess of the right tonsil measuring 7 mm, no definite drainable abscess identified. Tonsillar enlargement results in narrowing of the posterior oropharynx. Right lung ground-glass opacity partially visualized this could represent infection inflammation or aspiration. These findings are currently being treated with IV clindamycin while in the department, will be discharged home with a 10 day course of 300 mg t.i.d. clindamycin for infection. We will be sent home with 5 day course of 20 mg prednisone for swelling. Discussed follow up with patient including follow up with primary care for referral to ENT. Discussed strict return precautions. Patient able to tolerate p.o. kimmy beba and crackers while in the department and is tolerating oral secretions without difficulty. Patient feels comfortable to discharge home for self-care. Differential Diagnosis Differential Diagnoses: The differential diagnosis associated with the presentation includes PT Retropharyngeal abscess Claudio's angina Pharyngitis Viral illness Mononucleosis Admission/Observation Consideration of admission/observation: Escalation of care including admission/observation considered Lab Data MDM Lab Attestation statement: I reviewed the patient's lab results. 03/26/25 12:05 03/26/25 12:05 Labs: Lab Results 03/26/25 Range/Units 12:05 WBC 21.8 H (4.8-10.8) X10*3/uL RBC 3.99 L (4.20-5.50) X10*6/uL Hgb 11.9 L (12.0-16.0) g/dl Hct 35.7 L (37.0-47.0) % MCV 89.5 (80.0-98.0) fL MCH 29.8 (27.0-33.0) pg MCHC 33.3 (31.0-35.0) g/dl RDW 13.3 (11.0-16.0) % Plt Count 138 L (160-400) X10*3/uL MPV 11.0 (9.4-12.3) fL Immature Gran % (Auto) 1.8 H (0.0-0.4) % Neut % (Auto) 85.3 H (45-73) % Lymph % (Auto) 5.5 L (20-40) % Gray % (Auto) 6.6 (2-11) % Eos % (Auto) 0.6 (0-4) % Baso % (Auto) 0.2 (0-2) % Lymph # (Auto) 1.2 (1.2-4.9) X10*3/uL Gray # (Auto) 1.4 H (0.1-1.2) X10*3/uL Eos # (Auto) 0.1 (0.0-0.4) X10*3/uL Baso # (Auto) 0.0 (0.0-0.2) X10*3/uL Abs Immat Gran (auto) 0.39 H (0.00-0.03) X10*3/uL Absolute Neuts (auto) 18.6 H (2.0-8.3) x10*3/uL Absolute Nucleated RBC 0.000 (0.0-0.012) X10*3/uL Nucleated RBC % (auto) 0.0 (0.0-0.2) /100WBC Sodium 139 (135-145) mmol/L Potassium 3.4 D (3.3-5.1) mmol/L Chloride 104 (96-108) mmol/L Carbon Dioxide 25 (22-29) mmol/L Anion Gap 13 (12-20) BUN 6 L (9-16) mg/dL Creatinine 0.51 (0.5-1.4) mg/dL Estim Creat Clear Calc 172.3 Estimated GFR > 60 Random Glucose 114 (60-115) mg/dL Calcium 9.3 (8.4-10.2) mg/dL Total Bilirubin 0.5 (0.0-1.0) mg/dL AST 12 (5-31) U/L ALT 12 (0-31) U/L Alkaline Phosphatase 96 (39-117) U/L Total Protein 7.7 (6.5-8.0) g/dL Albumin 4.0 (3.5-5.0) g/dL Beta HCG, Quant < 2 mIU/mL Monoscreen Negative (Negative) S. pyogenes GrpA PRISCILA Positive A (Negative) Independent Interpretation I performed an independent interpretation of an: CT Scan Radiology Impression Discussion of test interpretation with radiology: I have reviewed the radiologist's reading. Radiologist Impression: CT soft tissue neck with contrast Comparison: None Findings: The visualized intracranial contents are unremarkable. The bilateral palatine tonsils are enlarged and heterogeneous in appearance. Within the anterior right tonsil there is a low-attenuation collection measuring 6 x 7 mm, series 2, image 48. There are some smaller less well-defined areas of low attenuation within the left palatine tonsil. No definite rim enhancement around any of the collections. There is narrowing of the posterior oropharynx secondary to tonsillar enlargement. The adenoids are enlarged. No prevertebral soft tissue thickening. Salivary glands are unremarkable. No sialoliths. Thyroid gland is unremarkable. There are enlarged bilateral cervical chain lymph nodes, likely reactive. There are some patchy ground-glass opacities noted in the right lung, partially visualized. Left lung apex is clear. No acute fracture or dislocation. IMPRESSION: Enlarged bilateral palatine tonsils with heterogeneous internal architecture suggesting phlegmon or edema. No definite drainable abscess identified, although there may be an early developing abscess in the right tonsil measuring 7 mm. Tonsillar enlargement results in narrowing of the posterior oropharynx. Right lung ground-glass opacity, partially visualized. This could represent areas of infection, inflammation or aspiration This document has been electronically signed by: Jose Teixeira MD on 03/26/2025 14:41:06 Dictated By: Jose Teixeira MD Signed By: <Electronically signed by Jose Teixeira MD in [place]> External Record Review External record reviewed: Inpatient record, Office record and Outpatient record Chronic Conditions Patient?s care impacted by: Other (Anemia, migraine, asthma) Critical Care Time Critical Care Time Total Critical Care Time: 36 Attestation: I have personally provided critical care time exclusive of time spent on separately billable procedures. Time includes review of lab data, radiology results, discussion with consultants, and monitoring for potential decompensation. Intervention performed as documented. Discharge Plan Discharge Clinical Impression: Strep throat Patient Disposition: Home, Self-Care Instructions: Strep Throat (ED) Additional Instructions: You were evaluated in the ED today due to sore throat and difficulty swallowing. Your lab work revealed increased white blood cell count indicating that your body is fighting an infection. You were tested for mononucleosis infection which was negative. You were tested for strep throat infection which was positive. You had a CT done of the soft tissues of your neck to evaluate for possible deep tissue infection. Your results revealed in early abscess of the right tonsil, but does not have significant fluid for drainage to be done in the department. An incidental finding showed that you had some cloudiness of your right lung suggesting possible pneumonia. Your vital signs were stable while you were in the department you do not have a fever. You were medicated with IV fluids, 10 mg of an IV steroid called dexamethasone for swelling, 15 mg of IV Toradol for swelling and pain management. You were also given 2 mg of Ativan for anxiety which you were experiencing while in the department. You will be discharged with a 10 day course of antibiotic therapy with clindamycin which he will take 300 mg of 3 times a day. This antibiotic will treat your strep throat and your possible lung infection. It is very important that you complete this course of medication as directed, do not skip doses, do not finish this medication early. You should follow up with your PCP to ensure improvement and to get a referral for an ENT doctor who can further manage your recurrent strep infections. Please return to the emergency department if you experience fever over 100.4?, difficulty breathing, increased throat swelling, increased pain of your throat, increased swelling of your neck and/or face, nausea, vomiting, rash or any other new/worsening/concerning symptoms. Prescriptions: New prednisone 20 mg tablet 20 mg PO DAILY 5 Days Qty: 5 0RF clindamycin HCl 300 mg capsule 300 mg PO TID 10 Days Qty: 30 0RF No Action lidocaine [Lidoderm] 5 % adhesive patch,medicated 1 patch topical DAILY Qty: 30 0RF Rx Instructions: leave on most painful area for up to 12 hrs cyanocobalamin (vitamin B-12) [Vitamin B-12] 500 mcg Tablet 500 mcg PO DAILY Qty: 60 3RF Liletta 20.4 mcg/24 hrs (8 yrs) 52 mg intrauterine device 20.1 mcg intrauterine DAILY cholecalciferol (vitamin D3) 25 mcg (1,000 unit) tablet 25 mcg PO DAILY 30 Days Qty: 30 3RF naproxen 500 mg tablet 500 mg PO BID PRN (Reason: pain) Qty: 60 2RF Interventions: ED Discharge Assessment Last Done: 03/26/25 16:04 Discharge Date/Time: 03/26/25 16:04 Print Language: Indonesian
[2025-03-26 11:25] VITALS: BP 118/72; BP 145/98; PULSE 107; PULSE 71; RESP 20; TEMP 36.6; O2SAT 97; O2SAT 98; BMI 36.0
--- OUTSIDE RECORDS SUMMARY | 2025-03-26 11:50 | XMS_ITS | Clinical Summary ---
Author Organization [facility] Address [address] [place] [address] Care Team Providers Care Enamel Finisher Name Role Phone Saravanan Cardenas HECTOR Primary Care Provider [phone] Source Comments PLEASE NOTE, if this patient [...] Not on file Insurance [facility] Care Teams Enamel Finisher Relationship Specialty Start Date End Date Saravanan Cardenas FNP [facility] [place] [id number] PCP - General Family Medicine, MODERN LANGUAGES PROFESSOR 06/03/19
[2025-03-26 12:08] VITALS: BP 133/85; PULSE 82; RESP 18; O2SAT 99
[2025-03-26 12:09] LABS: MANUAL DIFF FLAG NO
[2025-03-26] MEDS: dexAMETHasone sod phosphate 10 MG/ML VIAL IVPUSH (12:10)
[2025-03-26] MEDS: Clindamycin Phosphate/D5W 600 MG/50 ML PIGGYBACK 100 MG IV (12:10)
[2025-03-26] MEDS: Ketorolac Tromethamine 15 MG/ML VIAL IVPUSH (12:10)
[2025-03-26] MEDS: LORazepam 1 MG TABLET 2 MG PO (12:10)
[2025-03-26 12:16] LABS: IDNOW Serial# 6674DD1D; Strep A Nucleic Acid Positive (Negative)
[2025-03-26 12:20] LABS: Basophils Percent Auto 0.2 % (0-2); Eosinophils Absolute Auto 0.1 X10*3/uL (0.0-0.4); Eosinophils Percent Auto 0.6 % (0-4); Hematocrit 35.7 % (37.0-47.0); Hemoglobin 11.9 g/dl (12.0-16.0); Imm Gran Abs Auto 0.39 X10*3/uL (0.00-0.03); Imm Gran Pct Auto 1.8 % (0.0-0.4); Lymphocytes Absolute Auto 1.2 X10*3/uL (1.2-4.9); Lymphocytes Percent Auto 5.5 % (20-40); Mean Corpuscular HGB Conc 33.3 g/dl (31.0-35.0); Mean Corpuscular Hemoglobin 29.8 pg (27.0-33.0); Mean Corpuscular Volume 89.5 fL (80.0-98.0); Monocytes Absolute Auto 1.4 X10*3/uL (0.1-1.2); Monocytes Percent Auto 6.6 % (2-11); Neutrophils Absolute Auto 18.6 x10*3/uL (2.0-8.3); Neutrophils Percent Auto 85.3 % (45-73); Platelet Count 138 X10*3/uL (160-400); Red Blood Count 3.99 X10*6/uL (4.20-5.50); Red Cell Distribution Width 13.3 % (11.0-16.0); White Blood Count 21.8 X10*3/uL (4.8-10.8)
[2025-03-26 12:33] LABS: Alanine Aminotransferase 12 U/L (0-31); Alkaline Phosphatase 96 U/L (39-117); Anion Gap 13 (12-20); Aspartate Amino Transferase 12 U/L (5-31); Bilirubin Total 0.5 mg/dL (0.0-1.0); Blood Urea Nitrogen 6 mg/dL (9-16); Calcium 9.3 mg/dL (8.4-10.2); Carbon Dioxide 25 mmol/L (22-29); Chloride 104 mmol/L (96-108); Creatinine Clr Calc Pharmacy 172.3; Estimated Glomerular Filt Rate > 60; Glucose Random 114 mg/dL (60-115); Potassium 3.4 mmol/L (3.3-5.1); Sodium 139 mmol/L (135-145); Total Protein 7.7 g/dL (6.5-8.0)
[2025-03-26 13:00] LABS: HCG Quantitative < 2 mIU/mL
[2025-03-26 13:03] LABS: Monotest Negative (Negative)
[2025-03-26] MEDS: iohexoL 350 MG/ML 100 ML INFUS..BTL 60 ML IV (13:28)
[2025-03-26 16:04] VITALS: BP 133/85; PULSE 82; RESP 18; TEMP -17.7; TEMP 0; O2SAT 99
== END 2025-03-26 16:04 | disposition home or self-care (01) ==
PROVIDERS: Emergency Provider Emergency Medicine; PCP Nurse Practitioner Family
DX: J02.0 Streptococcal pharyngitis (principal); R50.9 Fever, unspecified; F17.210 Nicotine dependence, cigarettes, uncomplicated
CPT/HCPCS: 36415; 70491; 80053; 84702; 85025; 86308; 87651; 96365; 96375; 99284; J0736; J1100; J1885; Q9967

== ENCOUNTER → 2025-03-26 11:29 | Outpatient (BNV) | payer OTHER, SELFPAY | PROVIDERS: Emergency Provider Emergency Medicine; PCP Nurse Practitioner Family; Visit Provider Radiology Diagnostic Radiology | DX: J35.1 Hypertrophy of tonsils (principal); J39.2 Other diseases of pharynx; J98.4 Other disorders of lung | CPT/HCPCS: 70491 ==

== ENCOUNTER 2025-04-02 10:42 | Outpatient (REF) | payer OTHER, SELFPAY ==
--- OUTSIDE RECORDS SUMMARY | 2025-04-02 10:45 | XMS_ITS | Clinical Summary ---
Author Organization [facility] Address [address] [place] [address] Care Team Providers Care Flood Control Engineer Name Role Phone Saravanan Cardenas HECTOR Primary Care Provider [phone] Source Comments PLEASE NOTE, if this patient [...] 61 07/14/2019 11:07 AM EDT Temperature 36.9 C (98.5 F) 07/14/2019 11:07 AM EDT Respiratory Rate 16 07/14/2019 11:07 AM EDT Oxygen Saturation - - Inhaled Oxygen Concentration - - Weight 138 kg (304 lb 4.8 oz) 07/14/2019 11:07 A M EDT Height 160.1 cm (5' 3.03 ) 07/14/2019 11:07 AM E DT Body Mass Index 53.85 07/14/2019 11:07 AM EDT Plan of Treatment Not on file Insurance [facility] Care Teams Flood Control Engineer Relationship Specialty Start Date End Date Saravanan Cardenas FNP [facility] [place] [phone] PCP - General Family Medicine, HOIST MECHANIC 06/03/19
[2025-04-02 11:52] LABS: Vitamin D 25-OH Total 34.7 ng/mL (>30)
== END 2025-04-02 10:43 | disposition home or self-care (01) ==
LOC: HO.LAB 10:42
PROVIDERS: PCP Nurse Practitioner Family; Visit Provider Nurse Practitioner Family
DX: E55.9 Vitamin D deficiency, unspecified (principal)
CPT/HCPCS: 36415; 82306

== ENCOUNTER → 2025-05-02 10:45 | Outpatient (REF) | payer OTHER, SELFPAY ==
--- OUTSIDE RECORDS SUMMARY | 2025-05-02 11:50 | XMS_ITS | Clinical Summary ---
Author Organization [facility] ity Address [address] [place] [address] Care Team Providers Care Metal Cans Supervisor Name Role Phone Unavailable Primary Care Provider [...] 2:30 PM EST Consult Bariatric Surgery - [place] [address] [facility] [address] [place] [phone] Kaia Chandler PA [address] [facility] [address] [place] [address] Health Maintenance Due Date Last Done Comments DTaP,Tdap,and Td Vaccines (1 - Tdap) 2009 Hepatitis B Vaccines (1 of 3 - 19+ 3-dose series) 2009 Cervical Cancer Screening: P ap Smear 2011 COVID-19 Vaccine ( - 2023-2 5 season) 2024 Depression Screening 10/13/2024 HIV Screening 01/12/2025 Hepatitis C Screening 01/12/2025 Social Influencers of Health Screening 01/12/2025 Influenza Vaccine (#1) 2025 HIB Vaccines Aged Out No longer [...] 5 Years) and At-Risk Patients (6 to 49 Years) Aged Out No longer eligible b ased on patient's age to complete this topic RSV Immunization Patients Un lina 20 months Aged Out No longer eligible b ased on patient's age to complete this topic Varicella Vaccines Aged Out No longer eligible based on patient's age to complete this topic Insurance [facility]
--- OUTSIDE RECORDS SUMMARY | 2025-05-02 11:50 | XMS_ITS | Clinical Summary ---
Author Organization [facility] Address [address] [place] [address] Care Team Providers Care Chief Radiology Name Role Phone Saravanan Cardenas HECTOR Primary Care Provider [phone] Source Comments PLEASE NOTE, if this patient [...] of Treatment Not on file Insurance [facility] Care Teams Chief Radiology Relationship Specialty Start Date End Date Saravanan Cardenas FNP [facility] [place] [phone] PCP - General Family Medicine, ABSENCE MANAGEMENT CONSULTANT 06/03/19
== END ==
LOC: HO.SL 10:45
PROVIDERS: PCP Nurse Practitioner Family; Visit Provider Physician Assistant Medical
DX: G47.19 Other hypersomnia (principal)
CPT/HCPCS: 95806

== ENCOUNTER → 2025-05-02 10:51 | Outpatient (BNV) | payer OTHER, SELFPAY | PROVIDERS: PCP Nurse Practitioner Family; Visit Provider Psychiatry & Neurology Neurology | DX: R06.83 Snoring (principal) | CPT/HCPCS: 95806 ==

== ENCOUNTER 2025-05-18 11:02 | Outpatient (AMB) | payer OTHER, SELFPAY ==
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
--- OUTSIDE RECORDS SUMMARY | 2025-05-18 11:49 | XMS_ITS | Clinical Summary ---
Author Organization [facility] Address [address] [place] [address] Care Team Providers Care City Wellness Coordinator Name Role Phone Saravanan Cardenas HECTOR Primary Care Provider [phone] Source Comments PLEASE NOTE, if this patient [...] of Treatment Not on file Insurance [facility] Care Teams City Wellness Coordinator Relationship Specialty Start Date End Date Saravanan Cardenas FNP [facility] [place] [phone] PCP - General Family Medicine, BUSINESS CENTER MANAGER 06/03/19
--- OUTSIDE RECORDS SUMMARY | 2025-05-18 11:49 | XMS_ITS | Clinical Summary ---
Author Organization [facility] ity Address [address] [place] [address] Care Team Providers Care Telecommunications Switch Technician Name Role Phone Unavailable Primary Care Provider [...] 2:30 PM EST Consult Bariatric Surgery - [place] [address] [place] [phone] Kaia Chandler PA [address] [place] [address] Health Maintenance Due Date Last Done Comments [...] patient's age to complete this topic Insurance [facility]
== END 2025-05-18 14:12 | disposition home or self-care (01) ==
PROVIDERS: PCP Nurse Practitioner Family; Visit Provider Physician Assistant Medical
DX: G47.19 Other hypersomnia (principal); R20.0 Anesthesia of skin; M21.071 Valgus deformity, not elsewhere classified, right ankle
CPT/HCPCS: 99214

== ENCOUNTER → 2025-06-24 19:30 | Outpatient (REF) | payer OTHER, SELFPAY ==
--- OUTSIDE RECORDS SUMMARY | 2025-06-24 21:31 | XMS_ITS | Clinical Summary ---
Author Organization [facility] Address [address] [place] [address] Care Team Providers Care Wind Site Manager Name Role Phone Saravanan Cardenas HECTOR Primary Care Provider Source Comments PLEASE NOTE, if this patient [...] of Treatment Not on file [facility] Care Teams Wind Site Manager Relationship Specialty Start Date End Date Saravanan Cardenas FNP [facility] [place] [phone] PCP - General Family Medicine, WINDOW SHADE CUTTER AND MOUNTER 06/03/19
--- OUTSIDE RECORDS SUMMARY | 2025-06-24 21:31 | XMS_ITS | Clinical Summary ---
Author Organization [facility] ity Address [address] [place] [address] Care Team Providers Care Assistant Drafter Name Role Phone Unavailable Primary Care Provider [...] 2:30 PM EST Consult Bariatric Surgery - [address] [place] [address] Kaia Chandler PA [address] [place] [phone] Health Maintenance Due Date Last Done Comments [...] patient's age to complete this topic Insurance [facility]
== END ==
LOC: HO.SL 19:30
PROVIDERS: PCP Nurse Practitioner Family; Visit Provider Physician Assistant Medical
DX: Z13.89 Encounter for screening for other disorder (principal)

== ENCOUNTER → 2025-06-24 21:27 | Outpatient (BNV) | payer OTHER, SELFPAY | PROVIDERS: PCP Nurse Practitioner Family; Visit Provider Psychiatry & Neurology Neurology | DX: G47.33 Obstructive sleep apnea (adult) (pediatric) (principal) | CPT/HCPCS: 95810 ==

== ENCOUNTER 2025-07-08 11:18 | Outpatient (AMB) | payer OTHER, SELFPAY ==
--- NOTE | 2025-07-08 11:25 | A.OFFPC_ITS ---
Vital Signs 07/08/25 11:32 Height 5 ft 4 in Weight 281 lb 2 oz BMI 48.2 BP 128/78 Blood Pressure Location Rt brachial Position Sitting Respiration 16 Pulse 56 Pulse Source Pulse Oximeter Temp 98.1 F Temp Source Oral Pulse Oximetry (%) 99 Oxygen Delivery Method Room Air Intake Visit Reasons: nausea, vomiting Intake Note: patient here c/o after she eats she gets nausea and diarhia and c/o of pain in left foot Bright Cutter Required: No Is last menstrual period known: Yes Last menstrual period: 06/30/25 Post menopausal: No Patient : No Allergies shellfish derived Allergy (Unknown, Verified 07/08/25 11:43) Anaphylaxis, tongue swelling, swelling walnut Allergy (Verified 07/08/25 11:43) Itching Medication List - Last Reconciled 07/08/25 by Dakotah Marquez CNP cholecalciferol (vitamin D3) 25 mcg PO DAILY 30 days cyanocobalamin (vitamin B-12) (Vitamin B-12) 500 mcg PO DAILY levonorgestrel (Liletta) 20.1 mcg intrauterine DAILY lidocaine 5% (Lidoderm) 1 patch topical DAILY Tobacco use date assessed: 07/08/25 Dental Screening Dental Screen Date: 07/08/25 Did you have a dental visit in the last 12 months?: Yes Did you have a dental problem in the last 6 months where you did not have access to dental care?: No Was dental information given to patient?: Patient has dentist HPI HPI Comments History of Present Illness Details 35-year-old female, accompanied by her m other, presents with complaints of non-bloody watery stool x6-7 times daily for over a year. She notes associated intermitted nausea. She notes bright red blood after wiping her stool x 3, last time was 3 weeks ago. She has not been taking any medication for her symptoms. Denies alleviating factors. She has never been evaluated by a maintenance technician or had colonoscopy. Her MGF has history of colon cancer. She does not know the the medical history on her father side. [facility] Medical History (Updated 07/08/25 @ 11:55 by Dakotah Marquez CNP) Eversion deformity of right foot Rheumatoid arthritis Hx LEEP (loop electrosurgical excision procedure), cervix, Anemia Morbid obesity with BMI of 50.0-59.9, adult So's palsy Surgical History H/O tubal ligation H/O cervical biopsy History of section, classical History of laparoscopic cholecystectomy Family History Father No problems noted. Mother Arthritis Carly's thyroiditis Morbid obesity due to excess calories FH: mental illness Sister Morbid obesity due to excess calories FH: mental illness Asthma Paternal Grandmother Brain aneurysm Paternal Grandfather Prostate cancer Maternal Grandfather HTN (hypertension) Brother FH: mental illness Maternal Aunt Breast cancer Other Family history of fibromyalgia Family history of rheumatoid arthritis Social History Household Members: Children Housing: Apartment Alcohol intake: never Patient Tobacco Use Status: Current everyday Tobacco user Tobacco use type: Cigarette e-Cigarette/Vaping Use: Never Used Second Hand Smoke Exposure: No Substance Use Type: Marijuana service: No Current occupational status: unemployed Current occupational exposures/hazards: No Cognitive needs: No Hearing needs: No Vision needs: Yes Female Reproductive History Menstrual Date of last menstrual period: 06/30/25 Questionnaire Thrive Questionnaire Date Thrive assessed: 11/23/24 I am a: Patient What is your living situation today?: I have a steady place to live Within the past 12 months, did the food you bought not last and you didn't have the money to get more?: Never true Within the past 12 months, did you worry whether your food would run out before you got money to buy more?: Never true Do you have trouble paying for medicines?: No Do you have trouble getting transportation to medical appointments?: Yes Do you have trouble paying your heating and electricity bill?: No Do you have trouble taking care of your child, family member or friend?: No Do you have trouble with day-to-day activities such as bathing, preparing meals, shopping, managing finances, etc.?: No Are you currently unemployed and looking for a job?: Yes Are you interested in more education?: Yes THRIVE Score: 1 RYAN-7 AMB Questionnaire RYAN-7 Date RYAN - 7 assessed: 12/08/24 Source: Developed by Drs. Luciano Martinez, Eulalia Block, Freddie Justice and colleagues, with an educational janna from [employer]. Review of Systems Const Details: Const Denies chills, Denies fatigue, Denies fever(s), Denies headache(s) and Denies weakness ENT Denies dizziness and Denies headache(s) Card Denies chest pain, Denies lightheadedness, Denies dyspnea and Denies other (Palpitations) Resp Denies cough, Denies dyspnea, Denies wheezing and Denies other ( shortness of breath) GI Reports nausea, reports diarrhea, Denies abdominal pain, Denies melena, Denies hematochezia, Denies dyspepsia Denies hematuria and Denies dysuria Musc Denies abnormal gait, Denies myalgias, Denies arthralgias, Denies numbness and Denies tingling Skin/Breast Denies rash, Denies unusual bruising and Denies wounds Neuro Denies abnormal gait, Denies dizziness, Denies headache(s), Denies memory loss, Denies numbness, Denies Sensory deficit (Neuro), Denies tingling and Denies weakness Psych Denies anxiety, Denies depression, Denies memory loss Endo Denies cold intolerance, Denies fatigue, Denies heat intolerance, Denies polydipsia and Denies polyuria Aller/Immun Denies wheezing Physical exam (Primary Care) Tobacco/Smoking Status: Tobacco use Status Tobacco use date assessed 01/25/25 01/25/25 13:05 Patient Tobacco Use Status Current everyday Tobacco 01/25/25 13:05 Tobacco use type Cigarette 01/25/25 13:05 e-Cigarette/Vaping Use Never Used 01/25/25 13:05 Thrive Assessment: Date of Thrive Assessment Date Thrive assessed 11/23/24 01/25/25 13:05 Const Other: General: no acute distress and well developed Nutritional Appearance: well nourished Orientation/consciousness: patient oriented x3 HENMT Head: Yes normocephalic and Yes atraumatic Eyes General: appearance normal, both eyes and all related structures Pupils: Equal, round and reactive pupils present EOM: EOMs intact bilaterally Resp Effort & Inspection: normal respiratory effort Auscultation: clear to auscultation bilaterally Cardio Rate: regular rate Rhythm: regular rhythm Heart sounds: S1 normal heart sound present, S2 normal heart sound present, no gallops, no murmurs and no rubs GI Palpation (GI): No Abdominal aortic bruit present, Soft to palpation, nontender, No hepatosplenomegaly present and No Rebound tenderness present Auscultation: normal bowel sounds General: Yes no CVA tenderness Back/Spine/Pelvis Back: no CVA tenderness Cervical Spine: cervical ROM normal and No Cervical spine tenderness Thoracic/Lumbar Spine: thoraco-lumbar ROM normal, No pain with thoraco-lumbar ROM, No thoracic spinal tenderness and No lumbar spinal tenderness Extrem General: Yes normal to inspection, No edema and No calf tenderness Skin General: warm and dry. Normal skin color. Normal skin turgor Neuro General: patient oriented x3, gait normal and no focal neuro deficit Cranial nerves: Yes Equal, round and reactive pupils present Cognition (Neuro): normal cognition Gait exam (Neuro): Normal gait present Sensory Exam: No Sensory deficit (Neuro) Psych Appearance: grossly normal Affect: normal affect Attitude: cooperative Thought process: Normal thought process present Coding Level of Care Code Est Pt Level 4 (26342) Diagnoses Diarrhea R19.7 Nausea R11.0 Assessment & Plan Assessment & Plan (1) Diarrhea: Code(s): R19.7 - Diarrhea, unspecified Category: Medical Plan: 35-year-old female, accompanied by her mother, presents with complaints of non- bloody watery stool x6-7 times daily for over a year. She notes associated intermitted nausea. She notes bright red blood after wiping her stool x 3, last time was 3 weeks ago. She has not been taking any medication for her symptoms. Denies alleviating factors. She has never been evaluated by a maintenance technician or had colonoscopy. Her MGF has history of colon cancer. She does not know the the medical history on her father side. Normal GI exam. Metamucil and Zofran as prescribed. Referred to [facility] [place]. Follow-up with worsening or new symptoms. Verbalized understanding and agreed with the plan. (2) Nausea: Code(s): R11.0 - Nausea Category: Medical Plan: Plan as above. Orders: Referrals Gastroenterology Referral R11.0 - Nausea, R19.7 - Diarrhea, unspecified Medications: New psyllium husk (Metamucil) mix into at least 8 oz of water or juice before administering 1 tbsp PO BID PRN 660 grams 0RF diarrhea ondansetron 4 mg PO Q8H PRN 20 tabs 0RF nausea and vomiting
[2025-07-08 11:32] VITALS: BP 128/78; PULSE 56; RESP 16; TEMP 36.7; O2SAT 99; BMI 48.2
--- OUTSIDE RECORDS SUMMARY | 2025-07-08 13:09 | XMS_ITS | Clinical Summary ---
Author Organization [facility] ity Address [address] [place] [address] Care Team Providers Care Tree Deadener Name Role Phone Unavailable Primary Care Provider [...] 2:30 PM EST Consult Bariatric Surgery - [address] [place] [address] Kaia Chandler PA [address] [place] [phone] Health Maintenance Due Date Last Done Comments DTaP,Tdap,and Td Vaccines (1 - Tdap) 2009 Hepatitis B Vaccines (1 of 3 - 19+ 3-dose series) 2009 Cervical Cancer Screening: P ap Smear 2011 Depression Screening 10/13/2024 HIV Screening 01/12/2025 Hepatitis C Screening 01/12/2025 Social Influencers of Health Screening 01/12/2025 COVID-19 Vaccine (1 - 2023-2 5 season) 2025 Influenza Vaccine (#1) 2025 HIB Vaccines Aged [...] patient's age to complete this topic Insurance [facility]
--- OUTSIDE RECORDS SUMMARY | 2025-07-08 13:09 | XMS_ITS | Clinical Summary ---
Author Organization [facility] Address [address] [place] [address] Care Team Providers Care Control Clerk Food And Beverage Name Role Phone Saravanan Cardenas HECTOR Primary Care Provider [phone] Source Comments PLEASE NOTE, if this patient [...] of Treatment Not on file [facility] Care Teams Control Clerk Food And Beverage Relationship Specialty Start Date End Date Saravanan Cardenas FNP [facility] [place] [phone] PCP - General Family Medicine, WIG DRESSER 06/03/19
== END 2025-07-08 11:56 | disposition home or self-care (01) ==
LOC: HO.HMCFM 11:19
PROVIDERS: PCP Nurse Practitioner Family; Visit Provider Nurse Practitioner Family
DX: R19.7 Diarrhea, unspecified (principal); R11.0 Nausea

== ENCOUNTER → 2025-07-08 11:18 | Outpatient (BNVA) | payer OTHER, SELFPAY | PROVIDERS: PCP Nurse Practitioner Family; Visit Provider Nurse Practitioner Family | DX: R11.0 Nausea (principal); R19.7 Diarrhea, unspecified | CPT/HCPCS: 99212 ==

== ENCOUNTER 2025-07-27 10:01 | Outpatient (REF) | payer OTHER, SELFPAY ==
--- NOTE | 2025-07-27 10:04 | EMG_ITS ---
Chief complaint: Bilateral feet pain and numbness Reason for referral: Evaluate for neuropathy Referred by: Valentín DAS Procedure done: Bilateral lower extremity NCS/EMG Precautions and/or limitations: Poor tolerance of test, afraid of needles The limb temperature was monitored continuously and remained between 32-36 degrees C during the performance of the NCS. Nerve Conduction Studies Anti Sensory Summary Table ?Stim Site NR Onset (ms) Norm Onset (ms) Peak (ms) Norm Peak (ms) O-P Amp (?V) Norm O-P Amp Site1 Site2 Delta-0 (ms) Dist (cm) Abe (m/s) Norm Abe (m/s) Left Sural Anti Sensory (Lat Mall) Calf ? 2.7 3.2 <4.0 8.6 >5.0 Calf Lat Mall 2.7 14.0 52 Right Sural Anti Sensory (Lat Mall) Calf ? 2.7 3.3 <4.0 6.8 >5.0 Calf Lat Mall 2.7 14.0 52 Motor Summary Table ?Stim Site NR Onset (ms) Norm Onset (ms) O-P Amp (mV) Norm O-P Amp iAmp (mV) Amp (1st) (%) Site1 Site2 Delta-0 (ms) Dist (cm) Abe (m/s) Norm Abe (m/s) Left Peroneal Motor (Ext Dig Brev) Ankle ? 3.8 <4.0 7.2 >2.5 10.1 100.0 Ankle Ext Dig Brev 3.8 0.0 B Fib ? 11.5 0.4 0.3 5.6 B Fib Ankle 7.7 43.0 56 >40 Right Peroneal Motor (Ext Dig Brev) Ankle ? 3.8 <4.0 3.1 >2.5 3.5 100.0 Ankle Ext Dig Brev 3.8 0.0 B Fib ? 9.7 0.8 0.9 25.8 B Fib Ankle 5.9 29.0 49 >40 Poplt ? 10.2 2.9 3.3 93.5 Poplt B Fib 0.5 6.0 120 >40 Right Tibial Motor (Abd Atkins Brev) Ankle ? 4.8 <5 9.5 >2.5 13.7 100.0 Ankle Abd Atkins Brev 4.8 0.0 Knee ? 12.6 0.5 0.7 5.3 Knee Ankle 7.8 35.0 45 >40 EMG ?Side Muscle Nerve Root Ins Act Fibs Psw Amp Dur Poly Recrt Int Pat Comment Right AntTibialis Dp Br Peron L4-5 Nml Nml Nml Nml Nml 0 Nml Complete Right PostTibialis Tibial L5, S1 Nml Nml Nml Nml Nml 0 Nml Complete Right MedGastroc Tibial S1-2 Nml Nml Nml Nml Nml 0 Nml Complete FINDINGS: All motor and sensory nerves tested showed normal latencies, amplitudes and conduction velocities. Drop in amplitude proximally seen on bilateral tibial nerves, most likely due to poor patient tolerance and habitus. Concentric needle EMG was performed in selected muscles of the right lower extremity. Study did not reveal signs of electric abnormalities as shown in the table above. Patient unable to finish needle EMG. IMPRESSION: 1. Overall normal NCS; incomplete EMG. 2. Based on NCS, there are no electrodiagnostic evidence for peroneal neuropathy, tibial neuropathy, or peripheral neuropathy. 3. Unable to rule out radiculopathy. Thank you for your kind referral. Sharon Cr MD, DIANA Board Certified, [place] Board of Physical Medicine and Rehabilitation (ABPMR) Board Certified, [place] Board of Electrodiagnostic Medicine (ABEM) [place] [id number] [facility]
--- OUTSIDE RECORDS SUMMARY | 2025-07-27 11:46 | XMS_ITS | Clinical Summary ---
Author Organization [facility] Address [address] [place] [address] Care Team Providers Care Building Carpenter Helper Name Role Phone Saravanan Cardenas HECTOR Primary Care Provider [phone] Source Comments PLEASE NOTE, if this patient [...] of Treatment Not on file Insurance [facility] Care Teams Building Carpenter Helper Relationship Specialty Start Date End Date Saravanan Cardenas FNP [facility] [place] [phone] PCP - General Family Medicine, DIRECTOR CHILD 06/03/19
--- OUTSIDE RECORDS SUMMARY | 2025-07-27 11:46 | XMS_ITS | Clinical Summary ---
Author Organization [facility] ity Address [address] [place] [address] Care Team Providers Care Director Of Academic Name Role Phone Unavailable Primary Care Provider [...] Care Team (Late st Contact Info) Description 08/15/2025 8:30 AM EST Consult Bariatric Surgery - [address] [place] [address] Kaia Chandler PA [address] [place] [phone] Health Maintenance Due Date Last Done Comments DTaP,Tdap,and Td Vaccines (1 - Tdap) 2009 Hepatitis B Vaccines (1 of 3 - 19+ 3-dose series) 2009 Cervical Cancer Screening: P ap Smear 2011 HPV Vaccines (1 - 3-dose SCD M series) 2017 Depression Screening 10/13/2024 HIV Screening 01/12/2025 Hepatitis C Screening 01/12/2025 Social Influencers of Health Screening 01/12/2025 COVID-19 Vaccine (1 - 2023-2 5 season) 2025 Influenza Vaccine (#1) 2025 RSV Immunization Adult Patie nts (1 - 1-dose 75+ series) 2065 HIB Vaccines Aged Out No longer eligi [...] patient's age to complete this [place] [id number] [facility]
== END 2025-07-27 10:02 | disposition home or self-care (01) ==
LOC: HO.NEURO 10:01
PROVIDERS: PCP Nurse Practitioner Family; Visit Provider Physician Assistant Medical
DX: M21.071 Valgus deformity, not elsewhere classified, right ankle (principal); R20.0 Anesthesia of skin; M79.671 Pain in right foot; M79.672 Pain in left foot
CPT/HCPCS: 95885; 95909

== ENCOUNTER → 2025-07-27 10:04 | Outpatient (BNV) | payer OTHER, SELFPAY | PROVIDERS: PCP Nurse Practitioner Family; Visit Provider Physical Medicine & Rehabilitation | DX: R20.2 Paresthesia of skin (principal); M79.671 Pain in right foot; M79.672 Pain in left foot | CPT/HCPCS: 95885; 95909 ==